=== PATIENT | female | born 1945 | race Caucasian/White ===

== ENCOUNTER → 2017-07-25 07:55 | Outpatient (CLI) | payer MEDICARE, SELFPAY ==
--- NOTE | 2017-07-25 | DI.MG.S_ITS ---
BILATERAL DIGITAL SCREENING MAMMOGRAM 3D/2D WITH CAD POST LUMPECTOMY: 07/25/2017 CLINICAL: Routine screening. Personal history of left breast cancer. Comparison is made to exams dated: 07/23/2016 mammogram, 07/06/2015 mammogram, and 05/17/2014 mammogram - [facility]. There are scattered fibroglandular elements in both breasts. Current study was also evaluated with a Computer Aided Detection (CAD) system. There are post operative findings in the left breast. No significant masses, calcifications, or other findings are seen in either breast. There has been no significant interval change. IMPRESSION: NEGATIVE There is no mammographic evidence of malignancy. A 1 year screening mammogram is recommended. This exam was interpreted at Station ID: [id number]. NOTE: For mammograms, a report in lay terms will be sent to the patient. Approximately 15% of breast malignancies will not be visualized mammographically. In the management of a palpable breast mass, a negative mammogram must not discourage biopsy of a clinically suspicious lesion. Electronically Signed By: Sofy [email or web address]/[email or web address]:07/25/2017 08:26:39 letter sent: Normal Exam ACR BI-RADS Category 1: Negative 3341F
== END ==
PROVIDERS: Family Provider Family Medicine; PCP Family Medicine; Visit Provider Physician Assistant
DX: Z12.31 Encounter for screening mammogram for malignant neoplasm of breast (principal); Z85.3 Personal history of malignant neoplasm of breast
CPT/HCPCS: 77063; 77067

== ENCOUNTER → 2017-10-15 15:44 | Outpatient (CLI) | payer MEDICARE, SELFPAY ==
[2017-10-15 16:17] LABS: Add Manual Diff / Slide Review NO; Basophils Percent Auto 0.9 % (0-2); Eosinophils Percent Auto 2.7 % (2-4); Hematocrit 44.3 % (36-46); Hemoglobin 15.2 g/dL (12.0-16.0); Lymphocytes Percent Auto 29.5 % (25-40); Mean Corpuscular HGB Conc 34.3 % (30-36); Mean Corpuscular Hemoglobin 30.8 PG (26-34); Mean Corpuscular Volume 89.8 fL (80-100); Monocytes Percent Auto 6.4 % (3-14); Neutrophils Absolute Auto 3200 /uL (3000-5900); Neutrophils Percent Auto 60.5 % (50-75); Platelet Count 209 X10^3/uL (150-400); Red Blood Cell Count 4.93 X10^6/uL (4.0-5.2); Red Cell Distribution Width 13.2 % (11.6-14.8); White Blood Cell Count 5.3 X10^3/uL (4.5-11.0)
[2017-10-15 16:46] LABS: Alanine Aminotransferase 31 IU/L (9-52); Albumin 4.7 g/dL (3.5-5.0); Albumin Globulin Ratio 1.6 (1.0-2.8); Alkaline Phosphatase 72 U/L (38-126); Aspartate Aminotransferase 27 IU/L (14-36); BUN Creatinine Ratio 23.3 (6-22); Bilirubin Total 1.4 mg/dL (0.2-1.3); Blood Urea Nitrogen 21 mg/dL (7-17); C-Reactive Protein Quant < 0.5 mg/dL (<1.0); Calcium 10.5 mg/dL (8.4-10.2); Carbon Dioxide 28 mmol/L (22-32); Chloride 102 mmol/L (98-107); Cholesterol 238 mg/dL (140-199); Estimated Glomerular Filt Rate > 60.0 mL/min (>60); Glucose 102 mg/dL (80-110); HDL Cholesterol 88 mg/dL (40-60); HEMOLYSIS < 15 (0-50); LDL Cholesterol Calculated 134 mg/dL (<100); Potassium 4.5 mmol/L (3.4-5.1); Sodium 140 mmol/L (137-145); Total Protein 7.7 g/dL (6.3-8.2); Triglycerides 82 mg/dL (35-150)
[2017-10-15 16:57] LABS: Erythrocyte Sedimentation Rate 2 MM/HR (0-20)
[2017-10-15 17:14] LABS: Thyroid Stimulating Hormone 0.14 uIU/mL (0.47-4.68)
[2017-10-15 17:34] LABS: Vitamin B12 603 pg/mL (239-931)
== END ==
PROVIDERS: Family Provider Family Medicine; PCP Family Medicine; Visit Provider Internal Medicine
DX: R51 Headache (principal)
CPT/HCPCS: 36415; 80053; 80061; 82607; 84443; 85025; 85651; 86140

== ENCOUNTER 2017-10-25 09:57 | Emergency (ER) | payer MEDICARE, SELFPAY ==
--- NOTE | 2017-10-25 09:59 | ED.GENADULT ---
HPI - General Adult General Chief complaint: Nausea/Vomiting/Diarrhea Stated complaint: DIARRHEA, FEEL LIKE I'M GOING TO FAINT Time Seen by Provider: 10/25/17 09:59 Source: patient Mode of arrival: ambulatory Limitations: no limitations History of Present Illness HPI narrative: Patient is an otherwise healthy 72-year-old female here for evaluation of not feeling well for the past month. Patient states that she has had diarrhea for the past 2 weeks. She has also had nausea which she describes as a generalized abdominal uneasiness. She has also had a right-sided headache which she saw her primary care doctor for last week and had this ?checked out? she states she had blood work done at that time. Apparently her TSH was low. She is not currently on any thyroid replacement medications. She was recently in [place] on a boat but states that her symptoms started prior to this trip. She has an appoint with her primary doctor next week. Denies any specific abdominal pain. No chest pain. No shortness of breath. Has had a 5 lb weight loss recently. Has had fatigue. Related Data Home Medications Medication Instructions Recorded Confirmed multivitamin [Multiple Vitamins] 1 tab PO QDAY #0 06/24/17 10/25/17 omega 4-iyu-kef-fish oil [Fish Oil] 1,000 mg PO QDAY #0 06/24/17 10/25/17 progesterone E4M 1 tab PO .hs 10/15/17 10/25/17 cholecalciferol (vitamin D3) 1,000 unit PO DAILY 10/25/17 10/25/17 [Vitamin D3] Previous Rx's Medication Instructions Recorded bupropion HCl 75 mg tablet 75 mg PO BID #60 tab 07/23/17 ondansetron 4 mg PO BID-TID PRN #10 tab 10/25/17 Allergies Allergy/AdvReac Type Severity Reaction Status Date / Time No Known Drug Allergies Allergy Verified 10/25/17 10:32 Review of Systems Constitutional Reports fatigue, Denies fever(s), Reports headache(s), Reports lethargy and Reports malaise ENT Ears, Nose, Mouth, and Throat: Denies vertigo, Denies dizziness, Reports headache(s), Reports disequilibrium, Denies sore throat and Denies throat swelling Cardiovascular Denies chest pain and Denies dyspnea Respiratory Denies cough and Denies dyspnea Gastrointestinal Gastrointestinal: Denies abdominal pain, Reports diarrhea, Reports nausea and Denies vomiting Genitourinary Reports dysuria, Denies urinary incontinence, Denies urinary hesitancy, Denies urinary urgency and Denies vaginal discharge Musculoskeletal Denies myalgias and Denies arthralgias Integumentary/Breasts Denies lesions and Denies rash Neurologic Denies confusion, Denies vertigo, Denies dizziness, Reports headache(s) and Reports disequilibrium Psychiatric Denies confusion Endocrine Reports fatigue Hematologic/Lymphatic Denies easy bleeding and Denies easy bruising Allergic/Immunologic Denies throat swelling [facility] Medical History Depression (Chronic) Measles (Chronic) Chicken pox (Resolved 1953) Surgical History Anesthesia (Resolved) Status post cholecystectomy (Resolved 1990) Status post colonoscopy (Resolved 2014) Family History Father Cancer Lung cancer Smoker Mother Diabetes mellitus Heart disease Brother No problems noted. Grandmother No problems noted. Sister No problems noted. Sister No problems noted. Social History Smoking Status: Never smoker Exam Initial Vital Signs Initial Vital Signs: Vital Signs Temperature 98.7 F 10/25/17 10:07 Pulse Rate 64 10/25/17 10:07 Respiratory Rate 14 10/25/17 10:07 Blood Pressure 156/91 H 10/25/17 10:07 Pulse Oximetry 100 10/25/17 10:07 Const General: cooperative, comfortable, well developed, well groomed and No acute distress Orientation: alert, awake and oriented x3 Resp Effort & Inspection: normal respiratory effort Auscultation: clear to auscultation bilaterally Cardio Rate: regular rate Rhythm: regular rhythm Heart Sounds: murmur Pulses: radial pulses present GI Inspection: non-distended Palpation: soft, No firm and No tender Back/Spine/Pelvis Back: No CVA tenderness Skin Lesions: no lesions Rashes: no rashes Neuro General: alert, awake and oriented x3 Cognition: normal cognition Speech: speech normal Gait: normal gait Motor: muscle tone normal throughout Sensory Exam: no sensory deficits noted Extrem General: normal to inspection and capillary refill normal Psych Appearance: grossly normal and well kempt Affect: other (Flat affect) Attitude: cooperative Thought Process: normal Course Orders Ordered: ED Orders 10/25/17 10:14 Complete Blood Count AUTO DIFF Stat Comprehensive Metabolic Panel Stat Lipase Stat Thyroid Stimulating Hormone Stat Triiodothyronine T3 Free Stat 10/25/17 10:19 EKG-12 Lead Stat Discontinued Medications Sodium Chloride (Normal Saline 0.9%) 1,000 mls @ 1,000 mls/hr IV BOLUS ONE Stop: 10/25/17 10:59 Last Infusion: 10/25/17 10:59 Dose: 0 mls/hr Admin: 10/25/17 10:17 Dose: 1,000 mls/hr Ondansetron HCl (Zofran) 4 mg IV NOW ONE Stop: 10/25/17 10:42 Last Admin: 10/25/17 10:57 Dose: 4 mg Vital Signs - 8 hr 10/25/17 10:07 10/25/17 10:35 10/25/17 11:45 Temperature 98.7 F Pulse Rate 64 60 46 L Respiratory Rate 14 14 Blood Pressure 156/91 H Blood Pressure [Left Arm] 137/69 H 129/59 H Pulse Oximetry 100 100 99 10/25/17 12:37 Temperature Pulse Rate 50 L Respiratory Rate 16 Blood Pressure Blood Pressure [Left Arm] 130/60 H Pulse Oximetry 96 Medical Decision Making MDM Narrative Medical decision making narrative: Patient's labs here in the emergency department were unremarkable. Her thyroid studies today were also unremarkable. Had a long discussion with her and her at bedside regarding this. She has a follow-up with her primary doctor next Friday. She reported an improvement of her abdominal symptoms after the Zofran. Urine is unremarkable. No indication for antibiotics. No indication for CT scans. Discussed with the patient that I did not have a specific etiology for her symptoms today however no emergent condition was found. She was given return precautions. She expressed understanding and agreement with plan. Lab Data Result diagrams: 10/25/17 10:14 10/25/17 10:14 Lab Results 10/25/17 10/25/17 10/25/17 Range/Units 10:14 10:14 10:14 WBC 3.4 L (4.5-11.0) X10^3/uL RBC 4.90 (4.0-5.2) X10^6/uL Hgb 15.1 (12.0-16.0) g/dL Hct 43.3 (36-46) % MCV 88.3 (80-100) fL MCH 30.8 (26-34) PG MCHC 34.8 (30-36) % RDW 13.1 (11.6-14.8) % Plt Count 213 (150-400) X10^3/uL Neut % (Auto) 50.0 (50-75) % Lymph % (Auto) 36.4 (25-40) % [place] % (Auto) 7.0 (3-14) % Eos % (Auto) 5.5 H (2-4) % Baso % (Auto) 1.1 (0-2) % Neut # (Auto) 1700 L (2586-0299) /uL Sodium 141 (137-145) mmol/L Potassium 4.0 (3.4-5.1) mmol/L Chloride 108 H (98-107) mmol/L Carbon Dioxide 22 (22-32) mmol/L BUN 16 (7-17) mg/dL Creatinine 0.90 (0.52-1.04) mg/dL Estimated GFR > 60.0 (>60) mL/min BUN/Creatinine Ratio 17.8 (6-22) Glucose 101 (80-110) mg/dL Calcium 10.1 (8.4-10.2) mg/dL Total Bilirubin 1.3 (0.2-1.3) mg/dL AST 27 (14-36) IU/L ALT 25 (9-52) IU/L Alkaline Phosphatase 78 (38-126) U/L Total Protein 7.7 (6.3-8.2) g/dL Albumin 4.5 (3.5-5.0) g/dL Globulin 3.2 (1.7-4.1) g/dL Albumin/Globulin Ratio 1.4 (1.0-2.8) Lipase 115 (23-300) U/L TSH 1.08 D (0.47-4.68) uIU/mL Free T3 3.39 (2.77-5.27) pg/mL ECG Data Attestation: I personally reviewed and interpreted this ECG as follows: Prior ECG tracings: not available for review Interpretation: Sinus bradycardia First degree AV block As needed oval 2-3 milliseconds Normal axis Normal QTC No ST T wave changes Discharge Plan Departure Patient Disposition: Home Clinical Impression: Malaise, Nausea Instructions: DI for Fatigue Activity Restrictions/Additional Instructions: Take the medication like we discussed. Keep her appointment that you have with your primary doctor on Friday of next week. Call your primary care doctor on Friday to see if they want to order stool studies. Recommend that you try to keep your fluid intake up. Return to the emergency department for any new or worsening symptoms Prescriptions: New ondansetron 4 mg tablet,disintegrating 4 mg PO BID-TID PRN (Reason: nausea and vomiting) Qty: 10 RF: 0 No Action multivitamin [Multiple Vitamins] 1 EACH tablet 1 tab PO QDAY Qty: 0 RF: 0 omega 9-fuc-lcu-fish oil [Fish Oil] 1,000 MG capsule 1,000 mg PO QDAY Qty: 0 RF: 0 bupropion HCl 75 mg tablet 75 mg PO BID Qty: 60 RF: 4 progesterone E4M 1 tab PO .hs RF: 0 cholecalciferol (vitamin D3) [Vitamin D3] 1,000 unit Capsule 1,000 unit PO DAILY RF: 0
[2017-10-25 10:07] VITALS: BP 156/91; PULSE 64; RESP 14; TEMP 37.1; O2SAT 100
[2017-10-25] MEDS: SODIUM CHLORIDE 0.9% 1,000 ML 1000 ML IV (10:17)
[2017-10-25 10:32] LABS: Add Manual Diff / Slide Review NO; Basophils Percent Auto 1.1 % (0-2); Eosinophils Percent Auto 5.5 % (2-4); Hematocrit 43.3 % (36-46); Hemoglobin 15.1 g/dL (12.0-16.0); Lymphocytes Percent Auto 36.4 % (25-40); Mean Corpuscular HGB Conc 34.8 % (30-36); Mean Corpuscular Hemoglobin 30.8 PG (26-34); Mean Corpuscular Volume 88.3 fL (80-100); Neutrophils Absolute Auto 1700 /uL (3000-5900); Platelet Count 213 X10^3/uL (150-400); Red Cell Distribution Width 13.1 % (11.6-14.8); White Blood Cell Count 3.4 X10^3/uL (4.5-11.0)
[2017-10-25 10:35] VITALS: BP 137/69; PULSE 60; RESP 14; O2SAT 100
[2017-10-25 10:37] LABS: Alanine Aminotransferase 25 IU/L (9-52); Albumin 4.5 g/dL (3.5-5.0); Albumin Globulin Ratio 1.4 (1.0-2.8); Alkaline Phosphatase 78 U/L (38-126); Aspartate Aminotransferase 27 IU/L (14-36); BUN Creatinine Ratio 17.8 (6-22); Bilirubin Total 1.3 mg/dL (0.2-1.3); Blood Urea Nitrogen 16 mg/dL (7-17); Calcium 10.1 mg/dL (8.4-10.2); Carbon Dioxide 22 mmol/L (22-32); Chloride 108 mmol/L (98-107); Estimated Glomerular Filt Rate > 60.0 mL/min (>60); Globulin 3.2 g/dL (1.7-4.1); Glucose 101 mg/dL (80-110); HEMOLYSIS < 15 (0-50); Lipase 115 U/L (23-300); Sodium 141 mmol/L (137-145); Total Protein 7.7 g/dL (6.3-8.2)
[2017-10-25] MEDS: ONDANSETRON 4 MG/2 ML INJ IV (10:57)
[2017-10-25 11:01] LABS: Free T3, Triiodothyronine Free 3.39 pg/mL (2.77-5.27)
[2017-10-25 11:15] LABS: Thyroid Stimulating Hormone 1.08 uIU/mL (0.47-4.68)
[2017-10-25 11:45] VITALS: BP 129/59; PULSE 46; O2SAT 99
[2017-10-25 12:37] VITALS: BP 130/60; PULSE 50; RESP 16; O2SAT 96
[2017-10-25 13:10] VITALS: BP 130/56; PULSE 58; O2SAT 96
== END 2017-10-25 13:14 | disposition home or self-care (01) ==
PROVIDERS: Emergency Provider Emergency Medicine; PCP Family Medicine
DX: R53.81 Other malaise (principal); R11.0 Nausea
CPT/HCPCS: 36591; 80053; 81003; 83690; 84443; 84481; 85025; 93005; 93010; 96361; 96374; 99283; 99284; J2405

== ENCOUNTER → 2017-11-07 13:34 | Outpatient (CLI) | payer MEDICARE, SELFPAY ==
[2017-11-07 15:09] LABS: Free T3, Triiodothyronine Free 3.78 pg/mL (2.77-5.27); Free T4, Direct Thyroxine 1.37 ng/dL (0.78-2.19)
[2017-11-07 15:22] LABS: Thyroid Stimulating Hormone 0.84 uIU/mL (0.47-4.68)
== END ==
PROVIDERS: PCP Family Medicine; Visit Provider Family Medicine
DX: R79.89 Other specified abnormal findings of blood chemistry (principal)
CPT/HCPCS: 36415; 84439; 84443; 84481

== ENCOUNTER → 2017-11-12 14:17 | Outpatient (CLI) | payer MEDICARE, SELFPAY ==
[2017-11-12 15:24] LABS: Add Manual Diff / Slide Review NO; Eosinophils Percent Auto 1.7 % (2-4); Hematocrit 42.9 % (36-46); Hemoglobin 14.9 g/dL (12.0-16.0); Lymphocytes Percent Auto 26.6 % (25-40); Mean Corpuscular HGB Conc 34.8 % (30-36); Mean Corpuscular Hemoglobin 30.8 PG (26-34); Mean Corpuscular Volume 88.4 fL (80-100); Monocytes Percent Auto 6.9 % (3-14); Neutrophils Absolute Auto 3000 /uL (3000-5900); Neutrophils Percent Auto 63.8 % (50-75); Platelet Count 230 X10^3/uL (150-400); Red Blood Cell Count 4.85 X10^6/uL (4.0-5.2); White Blood Cell Count 4.7 X10^3/uL (4.5-11.0)
[2017-11-12 15:52] LABS: Alanine Aminotransferase 25 IU/L (9-52); Albumin 4.5 g/dL (3.5-5.0); Albumin Globulin Ratio 1.5 (1.0-2.8); Alkaline Phosphatase 76 U/L (38-126); Aspartate Aminotransferase 32 IU/L (14-36); Bilirubin Total 1.5 mg/dL (0.2-1.3); Blood Urea Nitrogen 16 mg/dL (7-17); Calcium 10.3 mg/dL (8.4-10.2); Carbon Dioxide 27 mmol/L (22-32); Chloride 105 mmol/L (98-107); Estimated Glomerular Filt Rate > 60.0 mL/min (>60); Globulin 3.1 g/dL (1.7-4.1); Glucose 97 mg/dL (80-110); HEMOLYSIS 16 (0-50); Potassium 4.2 mmol/L (3.4-5.1); Sodium 142 mmol/L (137-145); Total Protein 7.6 g/dL (6.3-8.2)
== END ==
PROVIDERS: PCP Family Medicine; Visit Provider Internal Medicine
DX: R19.7 Diarrhea, unspecified (principal)
CPT/HCPCS: 36415; 80053; 85025

== ENCOUNTER → 2017-11-13 06:53 | Outpatient (CLI) | payer MEDICARE, SELFPAY ==
--- NOTE | 2017-11-13 06:54 | DI.MRI.S_ITS ---
PROCEDURE: MR HEAD/BRAIN WO CON INDICATIONS: 72-year-old woman with headache, memory impairment. TECHNIQUE: Non-contrast axial T1 spin echo, axial T2 fast spin echo, sagittal and axial FLAIR, coronal T2 fast spin echo, axial gradient echo, axial diffusion and ADC through the brain. COMPARISON: None. FINDINGS: Image quality: Excellent. CSF spaces: Ventricles appear symmetric in size and shape. Basal cisterns are patent. No extra-axial fluid collections. Brain: No intracranial bleeds or mass effects. There is mild cerebral volume loss for age. There are mild periventricular and deep white matter chronic small vessel ischemic changes. Brainstem appears normal. Diffusion-weighted images show no acute ischemic insults. No chronic ischemic insults. Normal intravascular flow voids are present. Skull and face: Calvarial bone marrow is normal in signal. Orbits are normal. Sinuses: Sinuses and mastoids are clear. IMPRESSION: 1. No acute intracranial abnormalities. 2. Mild cerebral volume loss and chronic microvascular ischemic changes. Dictated by: Josseline Sherman M.D. on 11/13/2017 at 9:38 Approved by: Josseline Sherman M.D. on 11/13/2017 at 9:40
== END ==
PROVIDERS: PCP Family Medicine; Visit Provider Family Medicine
DX: R51 Headache (principal); R41.3 Other amnesia
CPT/HCPCS: 70551

== ENCOUNTER → 2018-02-06 15:49 | Outpatient (CLI) | payer MEDICARE, SELFPAY ==
[2018-02-06 16:03] LABS: Bacteria Urine None Seen; RBC Urine None Seen (0-5/HPF)
[2018-02-06 16:13] LABS: Appearance Urine UA CLEAR; Bilirubin Urine UA NEGATIVE (NEGATIVE); Color Urine UA YELLOW; Glucose Urine UA NEGATIVE (Normal); Ketones Urine UA NEGATIVE (NEGATIVE); Leukocyte Esterase Urine UA 2+ (NEGATIVE); Nitrite Urine UA NEGATIVE (Negative); Occult Blood Urine UA TRACE-INTACT (Negative); Protein Urine UA NEGATIVE (Negative); Specific Gravity Urine UA <=1.005 (1.000-1.035); Urobilinogen Urine UA 0.2 E.U./dL (0.2); pH Urine UA 5.5 (4.5-8.0)
[2018-02-06 16:21] LABS: WBC Urine 1-5/HPF (0-5/HPF)
[2018-02-06 16:22] LABS: Culture Indicated Urine Specimen Cultured
[2018-02-06 17:42] LABS: Urine N gonorrhoeae NOT DETECTED
[2018-02-06 17:49] LABS: Urine Chlamydia NOT DETECTED
== END ==
PROVIDERS: PCP Family Medicine; Visit Provider Family Medicine
DX: N89.8 Other specified noninflammatory disorders of vagina (principal); R30.0 Dysuria
CPT/HCPCS: 81001; 87086; 87491; 87591

== ENCOUNTER → 2018-07-29 09:00 | Outpatient (CLI) | payer MEDICARE, SELFPAY ==
--- NOTE | 2018-07-29 | DI.MG.S_ITS ---
BILATERAL DIGITAL SCREENING MAMMOGRAM 3D/2D WITH CAD POST LUMPECTOMY: 07/29/2018 CLINICAL: Routine screening. Personal history of left breast cancer. Post left lumpectomy. Comparison is made to exams dated: 07/25/2017 mammogram, 07/23/2016 mammogram, and 07/06/2015 mammogram - [facility]. There are scattered fibroglandular elements in both breasts. Current study was also evaluated with a Computer Aided Detection (CAD) system. There are benign post operative findings in the left breast. There also are benign calcifications in both breasts. No significant masses, calcifications, or other findings are seen in either breast. There has been no significant interval change. IMPRESSION: There is no mammographic evidence of malignancy. A 1 year screening mammogram is recommended. This exam was interpreted at Station ID: [id number]. NOTE: For mammograms, a report in lay terms will be sent to the patient. Approximately 15% of breast malignancies will not be visualized mammographically. In the management of a palpable breast mass, a negative mammogram must not discourage biopsy of a clinically suspicious lesion. Electronically Signed By: Pablo [email or web address]:07/29/2018 09:59:39 letter sent: Normal Exam ACR BI-RADS Category 2: Benign Finding(s) 3342F
== END ==
PROVIDERS: PCP Family Medicine; Visit Provider Family Medicine
DX: Z12.31 Encounter for screening mammogram for malignant neoplasm of breast (principal); Z85.3 Personal history of malignant neoplasm of breast
CPT/HCPCS: 77063; 77067

== ENCOUNTER → 2018-11-04 13:06 | Outpatient (CLI) | payer MEDICARE, SELFPAY ==
[2018-11-04 13:24] LABS: Add Manual Diff / Slide Review NO; Basophils Absolute Auto 0 /uL (0-100); Eosinophils Absolute Auto 100 /uL (0-450); Eosinophils Percent Auto 3.2 % (2-4); Hematocrit 41.7 % (36-46); Hemoglobin 14.4 g/dL (12.0-16.0); Lymphocytes Absolute Auto 1300 /uL (1100-4500); Lymphocytes Percent Auto 27.8 % (25-40); Mean Corpuscular HGB Conc 34.7 % (30-36); Mean Corpuscular Volume 89.3 fL (80-100); Monocytes Absolute Auto 300 /uL (0-900); Monocytes Percent Auto 6.9 % (3-14); Neutrophils Absolute Auto 2800 /uL (1500-7000); Neutrophils Percent Auto 61.1 % (50-75); Platelet Count 217 X10^3/uL (150-400); Red Blood Cell Count 4.66 X10^6/uL (4.0-5.2); Red Cell Distribution Width 12.9 % (11.6-14.8); White Blood Cell Count 4.5 X10^3/uL (4.5-11.0)
[2018-11-04 13:51] LABS: Alanine Aminotransferase 20 IU/L (9-52); Albumin 4.2 g/dL (3.5-5.0); Albumin Globulin Ratio 1.4 (1.0-2.8); Alkaline Phosphatase 81 U/L (38-126); Aspartate Aminotransferase 30 IU/L (14-36); Bilirubin Total 1.2 mg/dL (0.2-1.3); Blood Urea Nitrogen 16 mg/dL (7-17); Calcium 10.1 mg/dL (8.4-10.2); Carbon Dioxide 24 mmol/L (22-32); Chloride 104 mmol/L (98-107); Estimated Glomerular Filt Rate > 60.0 mL/min (>60); Glucose 142 mg/dL (80-110); HEMOLYSIS < 15 (0-50); Sodium 139 mmol/L (137-145); Total Protein 7.2 g/dL (6.3-8.2)
[2018-11-04 14:09] LABS: Free T3, Triiodothyronine Free 3.91 pg/mL (2.77-5.27)
[2018-11-04 15:04] LABS: TSH w/ Reflex to FT4 0.97 uIU/mL (0.47-4.68)
== END ==
PROVIDERS: PCP Family Medicine; Visit Provider Family Medicine
DX: R23.2 Flushing (principal)
CPT/HCPCS: 36415; 80053; 84443; 84481; 85025

== ENCOUNTER → 2019-03-01 10:51 | Outpatient (CLI) | payer MEDICARE, SELFPAY ==
--- NOTE | 2019-03-01 10:57 | DI.RAD.S_ITS ---
PROCEDURE: XR HIP W PEL IF DONE LT 2V INDICATIONS: left hip pain TECHNIQUE: AP pelvis with lateral view(s) of the left hip(s). COMPARISON: [facility] [place], [place], XR PELVIS WITH LATERAL HIP LEFT, 08/07/2018, 14:13. FINDINGS: Bones: No fractures or dislocations. Pelvic ring appears intact. No suspicious bony lesions. Mild bilateral degenerative narrowing of the hips bilaterally. Soft tissues: The visualized bowel gas pattern is normal. No suspicious soft tissue calcifications. IMPRESSION: Mild osteoarthritic bilateral hip degenerative change. Dictated by: Regina Khan M.D. on 03/01/2019 at 14:30 Approved by: Regina Khan M.D. on 03/01/2019 at 14:30
--- NOTE | 2019-03-01 10:57 | DI.RAD.S_ITS ---
PROCEDURE: XR KNEE RT 3V INDICATIONS: right knee pain TECHNIQUE: 3 views of the knee were acquired. COMPARISON: None. FINDINGS: Bones: No fractures or dislocations. No suspicious bony lesions. Mild medial, lateral and patellofemoral compartment narrowing is present. Soft tissues: Moderate joint effusion. Dystrophic calcifications are noted the insertion of the lateral collateral ligament. IMPRESSION: Mild tricompartmental osteoarthritic narrowing. Dictated by: Regina Khan M.D. on 03/01/2019 at 14:29 Approved by: Regina Khan M.D. on 03/01/2019 at 14:30
== END ==
PROVIDERS: PCP Family Medicine; Visit Provider Family Medicine
DX: M25.552 Pain in left hip (principal); M25.561 Pain in right knee; M17.11 Unilateral primary osteoarthritis, right knee
CPT/HCPCS: 73502; 73562

== ENCOUNTER 2019-06-11 12:07 | Emergency (ER) | payer MEDICARE, SELFPAY ==
[2019-06-11 12:23] VITALS: BP 178/81; PULSE 63; RESP 23; TEMP 36.7; O2SAT 100; BMI 23.6
[2019-06-11 12:36] LABS: Add Manual Diff / Slide Review NO; Basophils Absolute Auto 100 /uL (0-100); Basophils Percent Auto 1.3 % (0-2); Eosinophils Absolute Auto 200 /uL (0-450); Eosinophils Percent Auto 3.9 % (2-4); Hematocrit 44.3 % (36-46); Hemoglobin 14.9 g/dL (12.0-16.0); Lymphocytes Absolute Auto 1400 /uL (1100-4500); Mean Corpuscular HGB Conc 33.8 % (30-36); Mean Corpuscular Hemoglobin 30.3 PG (26-34); Mean Corpuscular Volume 89.8 fL (80-100); Monocytes Absolute Auto 400 /uL (0-900); Monocytes Percent Auto 7.6 % (3-14); Neutrophils Absolute Auto 2600 /uL (1500-7000); Neutrophils Percent Auto 56.2 % (50-75); Platelet Count 222 X10^3/uL (150-400); Red Blood Cell Count 4.93 X10^6/uL (4.0-5.2); Red Cell Distribution Width 12.9 % (11.6-14.8); White Blood Cell Count 4.6 X10^3/uL (4.5-11.0)
[2019-06-11 12:38] LABS: INR 1.1 (0.9-1.3); Prothrombin Time 12.7 SECONDS (10.1-12.7)
--- NOTE | 2019-06-11 12:41 | DI.RAD.S_ITS ---
PROCEDURE: XR CHEST 1V INDICATIONS: dizziness TECHNIQUE: One view of the chest was acquired. COMPARISON: None. FINDINGS: Surgical changes and devices: None. Lungs and pleura: Lungs are clear. No pleural effusions or pneumothorax. Mediastinum: Mediastinal contours appear normal. Heart size is normal. Bones and chest wall: No suspicious bony lesions. Overlying soft tissues appear unremarkable. IMPRESSION: No acute cardiopulmonary pathology. Dictated by: Ishan Chowdhury M.D. on 06/11/2019 at 13:03 Approved by: Ishan Chowdhury M.D. on 06/11/2019 at 13:03
--- NOTE | 2019-06-11 12:42 | DI.CT.S_ITS ---
PROCEDURE: CT HEAD/BRAIN WO CON INDICATIONS: dizziness, elevated BP, tingling TECHNIQUE: Noncontrast 4.5 mm thick angled axial sections acquired from the foramen magnum to the vertex, with coronal and sagittal reformats. For radiation dose reduction, the following was used: automated exposure control, adjustment of mA and/or kV according to patient size. COMPARISON: [facility], MR, MR HEAD/BRAIN WO CON, 11/13/2017, 7:13. FINDINGS: Image quality: Excellent. CSF spaces: Basal cisterns are patent. No extra-axial fluid collections. The ventricles are symmetric in size and shape. Brain: No intracranial bleeds or masses. There is cerebral volume loss for age, with resultant ventricular and sulcal prominence. There are periventricular and deep white matter chronic small vessel ischemic changes. There is intracranial internal carotid artery atherosclerosis. Skull and face: Calvarium and visualized facial bones appear intact, without suspicious lesions. Incidental note is made of hyperostosis frontalis. This is not considered to be pathologic in a woman of this age. Sinuses: Visualized sinuses and mastoids are clear. IMPRESSION: Unremarkable intracranial study for age, without acute abnormality identified. Note is made of age-appropriate brain parenchymal volume loss and chronic small vessel ischemic changes. Dictated by: Abdirizak Pittman M.D. on 06/11/2019 at 11:58 Approved by: Abdirizak Pittman M.D. on 06/11/2019 at 11:59
[2019-06-11 12:46] LABS: Alanine Aminotransferase 19 IU/L (<35); Albumin 4.5 g/dL (3.5-5.0); Albumin Globulin Ratio 1.4 (1.0-2.8); Alkaline Phosphatase 84 U/L (38-126); Aspartate Aminotransferase 36 IU/L (14-36); BUN Creatinine Ratio 24.1 (6-22); Bilirubin Total 1.3 mg/dL (0.2-1.3); Blood Urea Nitrogen 21 mg/dL (7-17); Calcium 10.5 mg/dL (8.4-10.2); Carbon Dioxide 27 mmol/L (22-32); Chloride 105 mmol/L (98-107); Estimated Glomerular Filt Rate > 60.0 mL/min (>60); Globulin 3.3 g/dL (1.7-4.1); Glucose 111 mg/dL (80-110); Potassium 4.2 mmol/L (3.4-5.1); Sodium 140 mmol/L (137-145); Total Protein 7.8 g/dL (6.3-8.2)
[2019-06-11 13:00] VITALS: BP 149/67; PULSE 68; RESP 18; O2SAT 98
[2019-06-11 13:02] LABS: Creatine Kinase 67 U/L (30-135)
[2019-06-11 13:11] LABS: HEMOLYSIS 18 (0-50)
--- NOTE | 2019-06-11 13:42 | ED_ITS ---
HPI - Dizziness <LAURO Herr - Last Filed: 06/11/19 21:34> General Chief Complaint: Dizziness Stated Complaint: Dizziness body tingling underarm tenderness Time Seen by Provider: 06/11/19 12:16 Source: patient Mode of arrival: Ambulatory Limitations: no limitations History of Present Illness HPI Narrative: This is a 74-year-old female, nonsmoker, who presents to ED with sudden onset of dizziness this morning when she was sitting on a chair and talking on the phone and reports her whole body felt tingling but states she is not currently experiencing these. Patient describes as lightheadedness. Patient also reports bilateral axilla lymph node tenderness and mild soreness under her tongue for last 2 days. Patient denies fever, chills, nausea or vomiting. Patient denies short of breath, chest pain, nausea or vomiting, or cold sweats. Patient denies speech difficulty, headache, vision changes, weakness to extremities. Patient states she is rather healthy and walk and exercise regularly. She drinks beer occasionally but does not use recreational drugs. She has history of depression and takes 1 prescriptive medication for this. Related Data Home Medications Medication Instructions Recorded Confirmed multivitamin [Multiple Vitamins] 1 tab PO QDAY #0 06/24/17 03/01/19 omega 7-eoq-[id number]-fish oil [Fish Oil] 1,000 mg PO QDAY #0 06/24/17 03/01/19 cholecalciferol (vitamin D3) 1,000 unit PO DAILY 10/25/17 03/01/19 [Vitamin D3] Previous Rx's Medication Instructions Recorded bupropion HCl 150 mg 24 hr tablet, 150 mg PO QAM #90 tab 11/04/18 extended release Allergies Allergy/AdvReac Type Severity Reaction Status Date / Time No Known Drug Allergies Allergy Verified 06/11/19 12:23 Review of Systems <LAURO Herr - Last Filed: 06/11/19 21:34> Review of Systems Narrative: General: Denies fever, chills, fatigue, malaise, sweats. HEENT: Denies sinus pain, ear pain, sore throat, difficulty swallowing, (+) dizziness. Respiratory: Denies dyspnea, cough, wheezing, hemoptysis, sputum. Cardiovascular: Denies chest pain, palpitations, orthopnea, edema. Gastrointestinal: Denies nausea, vomiting, abdominal pain, diarrhea, constipation, melena. : Denies dysuria, frequency, incontinence, hematuria, urinary retention. Musculoskeletal: Denies weakness, joint pain or bony pain. Skin: Denies rash, skin lesions, or other. Neurologic: Denies weakness, headache, (+) whole body tingling, change in speech, confusion, seizures, incoordination. Psychiatric: No concerning psychosocial issues. 12-point review of systems is negative except for those stated above. Patient History <LAURO Herr - Last Filed: 06/11/19 21:34> Medical History Chicken pox (Resolved 1953) Depression (Chronic) Measles (Chronic) Surgical History Anesthesia (Resolved) Status post cholecystectomy (Resolved 1990) Status post colonoscopy (Resolved 2014) Family History Father Cancer Lung cancer Smoker Mother Diabetes mellitus Heart disease Brother No problems noted. Grandmother No problems noted. Sister No problems noted. Sister No problems noted. Social History marital status: household members: spouse pets and animals: Yes education level: college occupational status: other seatbelt use: always helmet use: Yes water heater temp set < 120 deg: Yes working smoke detector in home: Yes fire extinguisher in home: Yes carbon monox detector in home: No firearms in home: No Smoking Status: Never smoker alcohol intake: current (rare) during the past year weight has: remained stable well-balanced diet: daily or most days daily servings fruits/veg: other caffeine: Yes eating out: rarely or never Type(s) of exercise: regular exercise frequency: 3-4 times per week duration: 45-60 minutes/day Smoking Status: Never smoker alcohol intake frequency: holidays/special occasions only Substance Use Type: does not use Exam <LAURO Herr - Last Filed: 06/11/19 21:34> Narrative Exam Narrative: GEN: Alert, oriented x 3, well appearing and nourished, and in no acute distress. Head: Normal cephalic, atraumatic. No scalp or temporal tenderness, palpable mass or rash. EYES: Pupils are equal, round, and reactive to light and accommodation. Extraocular muscles are intact bilaterally. There is no subconjunctival hemorrhage, exudate and sclera non-icteric. ENT: Bilateral auditory canals and tympanic membranes clear. Hearing grossly intact. Nose without bleeding, purulent discharge, septal hematoma or deviation. Turbinate without erythema or swelling. Facial sinuses nontender to palpate. Mucous membrane moist, no mucosal lesion. Throat without erythema, tonsillar hypertrophy or exudate. Uvula in midline, airway patent. Neck: Trachea in midline. No JVD, non-tender without lymphadenopathy. No masses or thyroid megaly. Supple, non-tender and no meningeal signs. CARDIAC: Normal regular rate and rhythm without murmurs, gallops, or rubs. No chest wall tenderness. No peripheral edema, cyanosis or pallor. Capillary refill is less than 2 seconds. No carotid bruits. RESPIRATORY: Lungs are cleat to auscultate bilaterally. No cough, wheezes, rales, or rhonchi. No stridor, respiratory distress, increase work of breathing, or accessary muscle used. ABD: Abdomen soft, nontender and non-distended. No guarding or rebound tenderness to palpate. Bowel sounds are normal in all 4 quadrants. There is no palpable masses or organomegaly. EXT: Full painless ROM of all extremities with no loss of sensation, strength, effusion or edema. SKIN: Warm, dry, normal color for patient. No erythema, lesions or rash. BACK: Nontender without deformity or crepitance. No flank tenderness. NEUROLOGICAL: Alert and oriented to place, time and person. No facial droops, dysphasia. CN II-XII intact. Strength and sensation symmetric and intact throughout. Cerebellar testing normal. PSYCHIATRIC: Good judgement and reason, without hallucinations, abnormal affect or abnormal behaviors during the examination. Patient is not suicidal. Initial Vital Signs Initial Vital Signs: Vital Signs Temperature 98.1 F 06/11/19 12:23 Pulse Rate 63 06/11/19 12:23 Respiratory Rate 23 06/11/19 12:23 Blood Pressure 178/81 H 06/11/19 12:23 Pulse Oximetry 100 06/11/19 12:23 <Suly Salinas MD - Last Filed: 06/12/19 07:16> Initial Vital Signs Initial Vital Signs: Vital Signs Temperature 98.1 F 06/11/19 12:23 Pulse Rate 63 06/11/19 12:23 Respiratory Rate 23 06/11/19 12:23 Blood Pressure 178/81 H 06/11/19 12:23 Pulse Oximetry 100 06/11/19 12:23 Scores <LAURO Herr - Last Filed: 06/11/19 21:34> GCS Reynaldo coma scale eye opening: Spontaneous [place] coma scale verbal response: Orientated Reynaldo coma scale motor response: Obey commands [place] coma scale total score: 15 HEART Score Heart Score history: Slightly Suspicious Heart Score EKG: Normal Heart Score Age: > or = 65 years old Heart Score risk factors: No known risk factors Heart Score troponin: < or = to normal limit Heart Score Total: 2 NIH Stroke Scale Level of Conciousness: Alert, keenly responsive Ask month/age: Answers both questions correctly. Open/close eyes, close hand: Performs both tasks correctly Best gaze horizontal: Normal Visual penaloza: No visual loss Facial palsy: Normal symetrical movement Left arm drift: No drift for full 10 sec Right arm drift: No drift for full 10 sec Left leg drift: No drift for full 10 sec Right leg drift: No drift for full 10 sec Limb ataxia: Absent Sensory on face/arms/legs: Normal, no sensory loss Best language: No aphasia, normal Dysarthria: Normal Extinction or inattention: No abnormality Total NIH Stroke scale score: 0 Course <KELLY HerrP - Last Filed: 06/11/19 21:34> Orders Ordered: ED Orders 06/11/19 12:41 XR chest 1V Stat 06/11/19 12:42 CT head/brain wo con Stat Vital Signs Vital signs: Vital Signs - 8 hr 06/11/19 14:00 06/11/19 14:22 Pulse Rate 67 66 Respiratory Rate 17 16 Blood Pressure [Left Arm] 138/67 147/73 H Pulse Oximetry 97 98 <Suly Salinas MD - Last Filed: 06/12/19 07:16> Orders Ordered: ED Orders 06/11/19 12:41 XR chest 1V Stat 04/10/20 12:42 CT head/brain wo con Stat Vital Signs Vital signs: Vital Signs - 8 hr 06/11/19 14:00 06/11/19 14:22 Pulse Rate 67 66 Respiratory Rate 17 16 Blood Pressure [Left Arm] 138/67 147/73 H Pulse Oximetry 97 98 MDM - Dizziness <Jean-Pierre LAURO Doll - Last Filed: 06/11/19 21:34> Differential Diagnosis Differential diagnosis: Likely benign paroxysmal positional vertigo, transient cerebral ischemia and other (Dehydration, anemia, arrhythmia) Medical Records Attestation: I reviewed the patient's medical records. Lab Data Attestation: I reviewed the patient's lab results. Result diagrams: 06/11/19 12:20 06/11/19 12:20 Labs: Lab Results 06/11/19 06/11/19 06/11/19 Range/Units 12:20 12:20 12:20 WBC 4.6 (4.5-11.0) X10^3/uL RBC 4.93 (4.0-5.2) X10^6/uL Hgb 14.9 (12.0-16.0) g/dL Hct 44.3 (36-46) % MCV 89.8 (80-100) fL MCH 30.3 (26-34) PG MCHC 33.8 (30-36) % RDW 12.9 (11.6-14.8) % Plt Count 222 (150-400) X10^3/uL Neut % (Auto) 56.2 (50-75) % Lymph % (Auto) 31.0 (25-40) % Atkinson % (Auto) 7.6 (3-14) % Eos % (Auto) 3.9 (2-4) % Baso % (Auto) 1.3 (0-2) % Neut # (Auto) 2600 (3249-8994) /uL Lymph # (Auto) 1400 (5063-7266) /uL Atkinson # (Auto) 400 (0-900) /uL Eos # (Auto) 200 (0-450) /uL Baso # (Auto) 100 (0-100) /uL PT 12.7 (10.1-12.7) SECONDS INR 1.1 (0.9-1.3) Sodium 140 (137-145) mmol/L Potassium 4.2 (3.4-5.1) mmol/L Chloride 105 (98-107) mmol/L Carbon Dioxide 27 (22-32) mmol/L BUN 21 H (7-17) mg/dL Creatinine 0.87 (0.52-1.04) mg/dL Estimated GFR > 60.0 (>60) mL/min BUN/Creatinine Ratio 24.1 H (6-22) Glucose 111 H (80-110) mg/dL Calcium 10.5 H (8.4-10.2) mg/dL Total Bilirubin 1.3 (0.2-1.3) mg/dL AST 36 (14-36) IU/L ALT 19 (<35) IU/L Alkaline Phosphatase 84 (38-126) U/L Total Creatine Kinase (30-135) U/L CK-MB (CK-2) CK-MB (CK-2) Rel Index Troponin I Cancelled Total Protein 7.8 (6.3-8.2) g/dL Albumin 4.5 (3.5-5.0) g/dL Globulin 3.3 (1.7-4.1) g/dL Albumin/Globulin Ratio 1.4 (1.0-2.8) 04/10/20 Range/Units 12:20 WBC (4.5-11.0) X10^3/uL RBC (4.0-5.2) X10^6/uL Hgb (12.0-16.0) g/dL Hct (36-46) % MCV (80-100) fL MCH (26-34) PG MCHC (30-36) % RDW (11.6-14.8) % Plt Count (150-400) X10^3/uL Neut % (Auto) (50-75) % Lymph % (Auto) (25-40) % Atkinson % (Auto) (3-14) % Eos % (Auto) (2-4) % Baso % (Auto) (0-2) % Neut # (Auto) (7845-1777) /uL Lymph # (Auto) (0647-9613) /uL Atkinson # (Auto) (0-900) /uL Eos # (Auto) (0-450) /uL Baso # (Auto) (0-100) /uL PT (10.1-12.7) SECONDS INR (0.9-1.3) Sodium (137-145) mmol/L Potassium (3.4-5.1) mmol/L Chloride (98-107) mmol/L Carbon Dioxide (22-32) mmol/L BUN (7-17) mg/dL Creatinine (0.52-1.04) mg/dL Estimated GFR (>60) mL/min BUN/Creatinine Ratio (6-22) Glucose (80-110) mg/dL Calcium (8.4-10.2) mg/dL Total Bilirubin (0.2-1.3) mg/dL AST (14-36) IU/L ALT (<35) IU/L Alkaline Phosphatase (38-126) U/L Total Creatine Kinase 67 (30-135) U/L CK-MB (CK-2) TNP CK-MB (CK-2) Rel Index TNP Troponin I < 0.012 Total Protein (6.3-8.2) g/dL Albumin (3.5-5.0) g/dL Globulin (1.7-4.1) g/dL Albumin/Globulin Ratio (1.0-2.8) Imaging Data CT scan - head: Radiologist's Impression: [place] [id number] CT Scan Report Signed Patient: Carlie Braga#: [id number] : 7Acct:[id number] Age/Sex: 74 / FDate of Service: 06/11/19 Loc: ED Accession Number: [id number] Procedure: CT head/brain wo con Ordering Provider: Jean-Pierre Doll PROCEDURE: CT HEAD/BRAIN WO CON INDICATIONS: dizziness, elevated BP, tingling TECHNIQUE: Noncontrast 4.5 mm thick angled axial sections acquired from the foramen magnum to the vertex, with coronal and sagittal reformats. For radiation dose reduction, the following was used: automated exposure control, adjustment of mA and/or kV according to patient size. COMPARISON: [facility], , MR HEAD/BRAIN WO CON, 11/13/2017, 7:13. FINDINGS: Image quality: Excellent. CSF spaces: Basal cisterns are patent. No extra-axial fluid collections. The ventricles are symmetric in size and shape. Brain: No intracranial bleeds or masses. There is cerebral volume loss for age, with resultant ventricular and sulcal prominence. There are periventricular and deep white matter chronic small vessel ischemic changes. There is intracranial internal ca rotid artery atherosclerosis. Skull and face: Calvarium and visualized facial bones appear intact, without suspicious lesions. Incidental note is made of hyperostosis frontalis. This is not consi dered to be pathologic in a woman of this age. Sinuses: Visualized sinuses and mastoids are clear. IMPRESSION: Unremarkable intracranial study for age, without acute abnormality identified. Note is made of age-appropriate brain parenchymal volume loss and chronic small vessel ischemic changes. Dictated by: Abdirizak Pittman M.D. on 06/11/2019 at 11:58 Approved by: Abdirizak Pittman M.D. on 06/11/2019 at 11:59 Chest x-ray: Radiologist's Impression: [address] [id number] XRay Report Signed Patient: Carlie Braga#: [id number] : 7Acct:[id number] Age/Sex: 74 / FDate of Service: 06/11/19 Loc: ED Accession Number: [id number] Procedure: XR chest 1V Ordering Provider: Jean-Pierre Doll PROCEDURE: XR CHEST 1V INDICATIONS: dizziness TECHNIQUE: One view of the chest was acquired. COMPARISON: None. FINDINGS: Surgical changes and devices: None. Lungs and pleura: Lungs are clear. No pleural effusions or pneumothorax. Mediastinum: Mediastinal contours appear normal. Heart size is normal. Bones and chest wall: No suspicious bony lesions. Overlying soft tissues appear unremarkable. IMPRESSION: No acute cardiopulmonary pathology. Dictated by: Ishan Chowdhury M.D. on 06/11/2019 at 13:03 Approved by: Ishan Chowdhury M.D. on 06/11/2019 at 13:03 ECG Data Attestation: I personally reviewed and interpreted this ECG as follows: Prior ECG tracings: available for review Interpretation: SR rate at 62 with 1st degree AVB. Normal Reading. TN int 225, QRS duration 91, QT/QTC 394/[address] elevation or depression. No significant changes from previous EKG MDM Narrative Medical decision making narrative: This is a 74-year-old female who presents to ED with chief complain of sudden onset of dizziness which started when she was sitting on a chair while talking on the phone and tingling sensation in her whole body which resolved by the time she came to ED. patient also reports bilateral axilla lymph node tenderness and some soreness under her tongue for last 2 days. Patient is afebrile with normotensive and heart rate. EKG showed sinus rhythm with first-degree block which has not changed from previous EKG. Cardiac enzymes were negative. Head CT and chest x-ray were negative for acute findings. Neuro exam without focal deficit and NIH score was 0. CBC within normal limits. Chemistry test shows mildly elevated serum glucose of 111 and mildly elevated BUN of 21 otherwise unremarkable. Considered meclizine for patient's symptoms but When patient was reassessed, patient states continue to feel as her normal and declined medication. Patient advised to follow up with primary care physician for further evaluation and testing as needed. Return precautions including stroke symptoms were discussed with the patient and to call 911 and patient verbalized understanding and agreement with treatment plan. <Suly Salinas MD - Last Filed: 06/12/19 07:16> Lab Data Labs: Lab Results 06/11/19 06/11/19 06/11/19 Range/Units 12:20 12:20 12:20 WBC 4.6 (4.5-11.0) X10^3/uL RBC 4.93 (4.0-5.2) X10^6/uL Hgb 14.9 (12.0-16.0) g/dL Hct 44.3 (36-46) % MCV 89.8 (80-100) fL MCH 30.3 (26-34) PG MCHC 33.8 (30-36) % RDW 12.9 (11.6-14.8) % Plt Count 222 (150-400) X10^3/uL Neut % (Auto) 56.2 (50-75) % Lymph % (Auto) 31.0 (25-40) % Atkinson % (Auto) 7.6 (3-14) % Eos % (Auto) 3.9 (2-4) % Baso % (Auto) 1.3 (0-2) % Neut # (Auto) 2600 (2112-1116) /uL Lymph # (Auto) 1400 (1675-2221) /uL Atkinson # (Auto) 400 (0-900) /uL Eos # (Auto) 200 (0-450) /uL Baso # (Auto) 100 (0-100) /uL PT 12.7 (10.1-12.7) SECONDS INR 1.1 (0.9-1.3) Sodium 140 (137-145) mmol/L Potassium 4.2 (3.4-5.1) mmol/L Chloride 105 (98-107) mmol/L Carbon Dioxide 27 (22-32) mmol/L BUN 21 H (7-17) mg/dL Creatinine 0.87 (0.52-1.04) mg/dL Estimated GFR > 60.0 (>60) mL/min BUN/Creatinine Ratio 24.1 H (6-22) Glucose 111 H (80-110) mg/dL Calcium 10.5 H (8.4-10.2) mg/dL Total Bilirubin 1.3 (0.2-1.3) mg/dL AST 36 (14-36) IU/L ALT 19 (<35) IU/L Alkaline Phosphatase 84 (38-126) U/L Total Creatine Kinase (30-135) U/L CK-MB (CK-2) CK-MB (CK-2) Rel Index Troponin I Cancelled Total Protein 7.8 (6.3-8.2) g/dL Albumin 4.5 (3.5-5.0) g/dL Globulin 3.3 (1.7-4.1) g/dL Albumin/Globulin Ratio 1.4 (1.0-2.8) 04/10/20 Range/Units 12:20 WBC (4.5-11.0) X10^3/uL RBC (4.0-5.2) X10^6/uL Hgb (12.0-16.0) g/dL Hct (36-46) % MCV (80-100) fL MCH (26-34) PG MCHC (30-36) % RDW (11.6-14.8) % Plt Count (150-400) X10^3/uL Neut % (Auto) (50-75) % Lymph % (Auto) (25-40) % Atkinson % (Auto) (3-14) % Eos % (Auto) (2-4) % Baso % (Auto) (0-2) % Neut # (Auto) (6881-8370) /uL Lymph # (Auto) (0415-9308) /uL Atkinson # (Auto) (0-900) /uL Eos # (Auto) (0-450) /uL Baso # (Auto) (0-100) /uL PT (10.1-12.7) SECONDS INR (0.9-1.3) Sodium (137-145) mmol/L Potassium (3.4-5.1) mmol/L Chloride (98-107) mmol/L Carbon Dioxide (22-32) mmol/L BUN (7-17) mg/dL Creatinine (0.52-1.04) mg/dL Estimated GFR (>60) mL/min BUN/Creatinine Ratio (6-22) Glucose (80-110) mg/dL Calcium (8.4-10.2) mg/dL Total Bilirubin (0.2-1.3) mg/dL AST (14-36) IU/L ALT (<35) IU/L Alkaline Phosphatase (38-126) U/L Total Creatine Kinase 67 (30-135) U/L CK-MB (CK-2) TNP CK-MB (CK-2) Rel Index TNP Troponin I < 0.012 Total Protein (6.3-8.2) g/dL Albumin (3.5-5.0) g/dL Globulin (1.7-4.1) g/dL Albumin/Globulin Ratio (1.0-2.8) Discharge Plan Departure Patient Disposition: Home Clinical Impression: Light-headedness Discharge Date/Time: 06/11/19 14:41 Instructions: DI for Dizziness-Nonvertigo Activity Restrictions/Additional Instructions: You have been diagnosed with [lightheadedness and tingling in whole body which resolved. EKG was sinus rhythm with first-degree AV block without changes from previous EKG in 2018. CT scan of head and chest x-ray without acute findings, bleed. Cardiac enzymes were normal. No signs of anemia. Mild dehydration per chemistry test.]. What to do: *Take your medications as directed. No new medications to go home with. *Follow up with your primary care provider in 2-3 days, call for an appointment. Let them know you were seen in the ED and that we asked you to be seen in follow up. *Return to ED if you have any new, worsening, or concerning symptoms, such as [chest pain, breathing difficulty, unable to tolerate fluids, speech difficulty, weakness to 1 side of your body, vision change, headache, balance problem, or any acute concerns]. Prescriptions: No Action bupropion HCl 150 mg tablet extended release 24 hr 150 mg PO QAM Qty: 90 RF: 3 multivitamin [Multiple Vitamins] 1 EACH tablet 1 tab PO QDAY Qty: 0 RF: 0 omega 6-dpy-ugx-fish oil [Fish Oil] 1,000 MG capsule 1,000 mg PO QDAY Qty: 0 RF: 0 cholecalciferol (vitamin D3) [Vitamin D3] 1,000 unit Capsule 1,000 unit PO DAILY RF: 0 Referrals: Theresa Boyer MD [Primary Care Provider] -
[2019-06-11 14:00] VITALS: BP 138/67; PULSE 67; RESP 17; O2SAT 97
[2019-06-11 14:14] LABS: Troponin I < 0.012 ng/mL (0.01-0.034)
[2019-06-11 14:22] VITALS: BP 147/73; PULSE 66; RESP 16; O2SAT 98
== END 2019-06-11 14:41 | disposition home or self-care (01) ==
PROVIDERS: Emergency Provider Nurse Practitioner Family; PCP Family Medicine
DX: R42 Dizziness and giddiness (principal); I10 Essential (primary) hypertension; R79.89 Other specified abnormal findings of blood chemistry
CPT/HCPCS: 36415; 70450; 71045; 80053; 82550; 84484; 85025; 85610; 93005; 99284

== ENCOUNTER → 2019-10-29 15:01 | Outpatient (CLI) | payer MEDICARE, SELFPAY ==
[2019-10-30 15:09] LABS: COVID19 Sendout Not Detected (Not Detected)
== END ==
PROVIDERS: PCP Family Medicine; Visit Provider Physician Assistant
DX: R19.7 Diarrhea, unspecified (principal)
CPT/HCPCS: 87635

== ENCOUNTER → 2019-11-03 16:51 | Outpatient (CLI) | payer MEDICARE, SELFPAY ==
--- NOTE | 2019-11-03 17:15 | DI.MG.S_ITS ---
Patient Name: ROBERT LOZANO date: 1945 Sex: F Attending Physician: Merlin Indications: Date: 11/03/2019 16:58 At the request of: GERRY LEI Procedure: MM screening mammo BI BILATERAL DIGITAL SCREENING MAMMOGRAM 3D/2D WITH CAD POST LUMPECTOMY: 11/03/2019 CLINICAL: Routine screening. Breast cancer. Comparison is made to exams dated: 07/29/2018 mammogram, 07/25/2017 mammogram, and 07/23/2016 mammogram - [facility]. There are scattered fibroglandular elements in both breasts. Current study was also evaluated with a Computer Aided Detection (CAD) system. There are benign calcifications in both breasts. There also are benign post operative findings in the left breast. No significant masses, calcifications, or other findings are seen in either breast. There has been no significant interval change. IMPRESSION: BENIGN There is no mammographic evidence of malignancy. A 1 year screening mammogram is recommended. This exam was interpreted at Station ID: [id number]. NOTE: For mammograms, a report in lay terms will be sent to the patient. Approximately 15% of breast malignancies will not be visualized mammographically. In the management of a palpable breast mass, a negative mammogram must not discourage biopsy of a clinically suspicious lesion. Electronically Signed By: Pablo [email or web address]/[email or web address]:11/04/2019 07:42:40 letter sent: Normal Exam ACR BI-RADS Category 2: Benign Finding(s) 3342F Continued Report - Page 2 of 2 Patient Name: ROBERT LOZANO date: 1945 Sex: F Attending Physician: Merlin Indications: Date: 11/03/2019 16:58 At the request of: GERRY LEI Procedure: MM screening mammo BI
== END ==
PROVIDERS: PCP Family Medicine; Referring Provider Family Medicine; Visit Provider Family Medicine
DX: Z12.31 Encounter for screening mammogram for malignant neoplasm of breast (principal); Z85.3 Personal history of malignant neoplasm of breast
CPT/HCPCS: 77063; 77067

== ENCOUNTER → 2019-11-09 17:18 | Outpatient (CLI) | payer MEDICARE, SELFPAY | PROVIDERS: PCP Family Medicine; Visit Provider Nurse Practitioner | DX: R30.0 Dysuria (principal) | CPT/HCPCS: 87077; 87086; 87186 ==

== ENCOUNTER → 2019-11-16 09:49 | Outpatient (CLI) | payer MEDICARE, SELFPAY ==
[2019-11-19 03:28] LABS: Chlamydia trachomatis Negative (Negative); Mycoplasma genitalium Negative (Negative); Neisseria gonorrhoeae Negative (Negative)
== END ==
PROVIDERS: PCP Family Medicine; Visit Provider Family Medicine
DX: N89.8 Other specified noninflammatory disorders of vagina (principal); R82.90 Unspecified abnormal findings in urine
CPT/HCPCS: 87077; 87086; 87185; 87186; 87491; 87591

== ENCOUNTER → 2019-12-15 12:39 | Outpatient (CLI) | payer MEDICARE, SELFPAY | PROVIDERS: PCP Family Medicine; Visit Provider Family Medicine | DX: J02.9 Acute pharyngitis, unspecified (principal) | CPT/HCPCS: 87070 ==

== ENCOUNTER → 2020-04-25 10:57 | Outpatient (CLI) | payer MEDICARE, SELFPAY ==
--- NOTE | 2020-04-25 11:32 | DI.CT.S_ITS ---
PROCEDURE: CT HEAD/BRAIN WO CON INDICATIONS: worsening headache, palpable tender head mass right occipital TECHNIQUE: Noncontrast 4.5 mm thick angled axial sections acquired from the foramen magnum to the vertex, with coronal and sagittal reformats. For radiation dose reduction, the following was used: automated exposure control, adjustment of mA and/or kV according to patient size. COMPARISON: [facility], MR, MR HEAD/BRAIN WO CON, 11/13/2017, 7:13. [facility], CT, CT HEAD/BRAIN WO CON, 06/11/2019, 12:42. FINDINGS: Image quality: Excellent. CSF spaces: Basal cisterns are patent. No extra-axial fluid collections. The ventricles are symmetric in size and shape. Brain: No intracranial bleeds or masses. There is cerebral volume loss for age, with resultant ventricular and sulcal prominence. There are periventricular and deep white matter chronic small vessel ischemic changes. There is intracranial internal carotid artery atherosclerosis. Skull and face: Scrutiny is given to the right occipital region. No hand roller masses or bone lesions can be seen within this area. Calvarium and visualized facial bones appear intact, without suspicious lesions. Incidental note is made of hyperostosis frontalis. This is not considered to be pathologic in a woman of this age. Sinuses: Visualized sinuses and mastoids are clear. IMPRESSION: Unremarkable intracranial study, without an imaging explanation found for the patient's presenting history of headache. No abnormality seen within the right occipital region. Dictated by: Abdirizak Pittman M.D. on 04/25/2020 at 11:04 Approved by: Abdirizak Pittman M.D. on 04/25/2020 at 11:06
== END ==
PROVIDERS: PCP Family Medicine; Referring Provider Family Medicine; Visit Provider Family Medicine
DX: R51.9 Headache, unspecified (principal); R22.0 Localized swelling, mass and lump, head
CPT/HCPCS: 70450

== ENCOUNTER 2020-06-07 12:22 | Emergency (ER) | payer MEDICARE, SELFPAY ==
[2020-06-07 12:30] VITALS: BP 177/56; PULSE 63; RESP 14; TEMP 36.4; O2SAT 99; BMI 24.3
--- NOTE | 2020-06-07 14:52 | ED_ITS ---
HPI - Neuro Symptoms/Deficit General Chief Complaint: Neuro Symptoms/Deficit Stated Complaint: back of head hurts, no injury, memory issues Time Seen by Provider: 06/07/20 14:17 Source: patient Mode of arrival: Ambulatory Limitations: no limitations History of Present Illness HPI Narrative: 74-year-old woman presents with posterior occipital pain and concerns for memory dysfunction. The posterior occipital pain is been present for about 2 days is not associated with fever, neck stiffness, cough, your pain. She does note her right eye has been slightly more sensitive. She also is concerned about memory dysfunction. She has essentially spent the last year socially isolated due to COVID and as she is beginning to increase social activities she feels that she is not as sharp as she has been previously. She recently spoke to her sister on the phone who also expressed concerns about cognitive function. On Anticoagulants: No Related Data Home Medications Medication Instructions Recorded Confirmed multivitamin [Multiple Vitamins] 1 tab PO QDAY #0 06/24/17 04/14/20 omega 7-ojc-tww-fish oil [Fish Oil] 1,000 mg PO QDAY #0 06/24/17 04/14/20 cholecalciferol (vitamin D3) 1,000 unit PO DAILY 10/25/17 04/14/20 [Vitamin D3] Previous Rx's Medication Instructions Recorded bupropion HCl 150 mg 24 hr tablet, 150 mg PO BID #180 tab 11/23/19 extended release Estriol 1mg Vaginal Elicia See Rx Instructions .ROUTE 03/20/20 .COMPLEX #30 ea progesterone micronized 100 mg 100 mg PO QAM 30 Days #30 cap 03/20/20 capsule Allergies Allergy/AdvReac Type Severity Reaction Status Date / Time No Known Drug Allergies Allergy Verified 06/07/20 12:35 Review of Systems Review of Systems ROS Unobtainable: All systems reviewed & are unremarkable except as noted in HPI and below Hematologic/Lymphatic On Anticoagulants: No Patient History Medical History Chicken pox (1954) Depression Measles Surgical History Anesthesia Status post cholecystectomy (1990) Status post colonoscopy (2014) Family History Father Cancer Lung cancer Smoker Mother Diabetes mellitus Heart disease Brother No problems noted. Grandmother No problems noted. Sister No problems noted. Sister No problems noted. Social History marital status: household members: spouse pets and animals: Yes education level: college occupational status: other seatbelt use: always helmet use: Yes water heater temp set < 120 deg: Yes working smoke detector in home: Yes fire extinguisher in home: Yes carbon monox detector in home: No firearms in home: No Smoking Status: Never smoker alcohol intake: current (rare) during the past year weight has: remained stable well-balanced diet: daily or most days daily servings fruits/veg: other caffeine: Yes eating out: rarely or never Type(s) of exercise: regular exercise frequency: 3-4 times per week duration: 45-60 minutes/day Smoking Status: Never smoker alcohol intake frequency: holidays/special occasions only Substance Use Type: does not use Exam Narrative Exam Narrative: General: Healthy appearing, in no acute distress. Able to give a complete and coherent history. Well-nourished well-developed HEENT: Moist mucous membranes, normal sclera with reactive pupils, small swollen lymph node right occiput with no scalp lesions are your lesions appreciated on exam. Neck: , supple Respiratory: Lungs are clear to auscultation, no wheezing no rales no rhonchi. Full and symmetrical air movement Cardiac: Regular rate and rhythm no murmurs no bruits Abdomen: Soft, nontender, good bowel tones, no flank pain Skin: Warm and dry, no rashes Neurologic: Grossly neurologically intact with no obvious asymmetries or abnormalities. Fluent speech and appropriate cot interaction in the emergency department Extremities: No trauma, well perfused Psych: Cooperative, appropriate insight and affect Initial Vital Signs Initial Vital Signs: Vital Signs Temperature 97.5 F L 06/07/20 12:30 Pulse Rate 63 06/07/20 12:30 Respiratory Rate 14 06/07/20 12:30 Blood Pressure 177/56 H 06/07/20 12:30 Pulse Oximetry 99 06/07/20 12:30 Course Vital Signs Vital signs: Vital Signs - 8 hr 06/07/20 12:30 Temperature 97.5 F L Pulse Rate 63 Respiratory Rate 14 Blood Pressure 177/56 H Pulse Oximetry 99 MDM - Neuro Symptoms/Deficit Medical Records Attestation: I reviewed the patient's medical records. Lab Data Labs: Urine Dip Bedside Urine Glucose Negative Bedside Urine Bilirubin - Negative Bedside Urine Ketone - Negative Urine Specific [place] 1.015 Bedside Urine Occult Blood - Negative Bedside Urine pH 6.5 Bedside Urine Protein - Negative Bedside Urine Urobilinogen - Negative Bedside Urine Nitrite - Negative Bedside Urine Leukocytes - Negative Esterase [facility] Narrative Medical decision making narrative: 74-year-old woman with right-sided occipital pain and complaints with cognitive decline presents for further evaluation after recommendation from primary care office. She does have a small swollen occipital node that I believe is the source of the right neck pain. Reassurance given. Regarding the cognitive decline fact that she is asking the questions, concerned and seeking additional input is all very reassuring. We talked about some of the computer apps and games that can help test and challenge cognitive skills and suggested that she follow-up with her primary care physician to see if advanced neurocognitive testing might be appropriate. Discharge Plan Departure Patient Disposition: Home Clinical Impression: Cervical adenopathy, Memory dysfunction Instructions: Keep Your Memory Sharp, Enhancing Memory and Mental Function (Alternative Therapy) Activity Restrictions/Additional Instructions: Thank you for coming in today The soreness on the back of your neck I believe is due to a swollen lymph node. Typically lymph nodes in that area are swollen because of a small infection some more on your scalp. I did not see any obvious infection and I suspect that your immune system is working perfectly and this will resolve in the next couple of days. You expressed concern about cognitive decline. 2020 has been a challenging year for everybody and a number of people have noticed that a year of social isolation certainly causes some cognitive changes. With our conversation and the depth of your questions today you clearly do not have any dramatic signs of advancing dementia at this time. The recent head CT scan is reassuring for the absence of any physical abnormalities in your brain. I would encourage you to follow-up with Dr. Boyer regarding your memory concerns. There are much more in depth neuro cognitive testing options to truly get a better idea of memory dysfunction. In the meantime, doing all that you can to increase real human social interaction and looking up some of the online memory games and help in keeping memory sharp would certainly be appropriate. At this time, I do not see any evidence of overwhelming infection and I am not concerned about stroke. I wish you the best Prescriptions: No Action bupropion HCl 150 mg tablet extended release 24 hr 150 mg PO BID Qty: 180 RF: 3 multivitamin [Multiple Vitamins] 1 EACH tablet 1 tab PO QDAY Qty: 0 RF: 0 omega 1-qwc-xqj-fish oil [Fish Oil] 1,000 MG capsule 1,000 mg PO QDAY Qty: 0 RF: 0 progesterone micronized 100 mg capsule 100 mg PO QAM 30 Days Qty: 30 RF: 1 Estriol 1mg Vaginal Elicia See Rx Instructions .ROUTE .COMPLEX Qty: 30 RF: 2 cholecalciferol (vitamin D3) [Vitamin D3] 1,000 unit Capsule 1,000 unit PO DAILY RF: 0 Referrals: Theresa Boyer MD [Primary Care Provider] -
[2020-06-07 15:02] VITALS: BP 168/64; PULSE 77; RESP 16; O2SAT 98
== END 2020-06-07 15:02 | disposition home or self-care (01) ==
PROVIDERS: Emergency Provider Emergency Medicine; PCP Family Medicine
DX: R59.0 Localized enlarged lymph nodes (principal); R41.3 Other amnesia
CPT/HCPCS: 81003; 99284

== ENCOUNTER → 2020-07-26 08:55 | Outpatient (CLI) | payer MEDICARE, SELFPAY ==
--- NOTE | 2020-07-26 08:56 | DI.US.S_ITS ---
LIMITED ULTRASOUND OF LEFT BREAST: 07/26/2020 CLINICAL: Left retroareolar/nipple pain. Comparison is made to exams dated: 07/26/2020 mammogram, 11/03/2019 mammogram, 07/29/2018 mammogram, 07/25/2017 mammogram, 07/23/2016 mammogram, and 07/06/2015 mammogram - [facility]. Color flow and real-time ultrasound of the left breast retroareolar were performed. Estrella scale images of the real-time examination were reviewed. No significant abnormalities were seen sonographically in the left breast. Specifically, no finding to explain the patient's pain. IMPRESSION: NEGATIVE There is no sonographic correlate to the patient's pain and no evidence of malignancy. Return to annual mammogram screening schedule is recommended. Findings and recommendations were conveyed to the patient at time of exam. This exam was interpreted at Station ID: [id number]. Electronically Signed By: Alana mascorro/:07/26/2020 10:49:52 letter sent: Normal Exam Ultrasound BI-RADS: 1 Negative
--- NOTE | 2020-07-26 08:56 | DI.MG.S_ITS ---
BILATERAL DIGITAL DIAGNOSTIC MAMMOGRAM 3D/2D: 07/26/2020 CLINICAL: Left breast pain. Comparison is made to exams dated: 11/03/2019 mammogram, 07/29/2018 mammogram, and 07/25/2017 mammogram - [facility]. The tissue of both breasts is predominantly fatty. There is stable architectural distortion in the left breast central to the nipple anterior depth. This is seen in additional views. This correlates to the area of reported pain. No other new findings to explain nipple pain. No other significant masses, calcifications, or other findings are seen in either breast. IMPRESSION: INCOMPLETE: NEEDS ADDITIONAL IMAGING EVALUATION The architectural distortion in the left breast is consistent with a previous surgery and is stable. An ultrasound is recommended for full evaluation of this area given new symptoms. There is no other abnormality seen in the left breast to correspond with the pain in the sub-areolar depth. Ultrasound was performed immediately following this exam. This exam was interpreted at Station ID: [id number]. NOTE: For mammograms, a report in lay terms will be sent to the patient. Approximately 15% of breast malignancies will not be visualized mammographically. In the management of a palpable breast mass, a negative mammogram must not discourage biopsy of a clinically suspicious lesion. Electronically Signed By: Alana mascorro/:07/26/2020 10:48:54 ACR BI-RADS Category 0: Incomplete 3340F
== END ==
PROVIDERS: PCP Family Medicine; Referring Provider Family Medicine; Visit Provider Family Medicine
DX: R92.8 Other abnormal and inconclusive findings on diagnostic imaging of breast (principal); N64.4 Mastodynia; N64.89 Other specified disorders of breast
CPT/HCPCS: 76642; 77066; G0279

== ENCOUNTER → 2021-06-18 08:17 | Outpatient (CLI) | payer MEDICARE, SELFPAY ==
[2021-06-18 09:25] LABS: Add Manual Diff / Slide Review NO; Basophils Absolute Auto 0 /uL (0-100); Basophils Percent Auto 1.3 % (0-2); Eosinophils Absolute Auto 200 /uL (0-450); Eosinophils Percent Auto 4.1 % (2-4); Hemoglobin 14.8 g/dL (12.0-16.0); Lymphocytes Absolute Auto 1100 /uL (1100-4500); Lymphocytes Percent Auto 29.9 % (25-40); Mean Corpuscular HGB Conc 34.3 % (30-36); Mean Corpuscular Hemoglobin 31.1 PG (26-34); Mean Corpuscular Volume 90.6 fL (80-100); Monocytes Absolute Auto 300 /uL (0-900); Monocytes Percent Auto 9.2 % (3-14); Neutrophils Absolute Auto 2100 /uL (1500-7000); Neutrophils Percent Auto 55.5 % (50-75); Platelet Count 203 X10^3/uL (150-400); Red Blood Cell Count 4.75 X10^6/uL (4.0-5.2); White Blood Cell Count 3.7 X10^3/uL (4.5-11.0)
[2021-06-18 09:34] LABS: Alanine Aminotransferase 18 IU/L (<35); Albumin 4.5 g/dL (3.5-5.0); Albumin Globulin Ratio 1.3 (1.0-2.8); Alkaline Phosphatase 67 U/L (38-126); Aspartate Aminotransferase 34 IU/L (14-36); BUN Creatinine Ratio 13.7 (6-22); Bilirubin Total 1.1 mg/dL (0.2-1.3); Blood Urea Nitrogen 13 mg/dL (7-17); Calcium 9.8 mg/dL (8.4-10.2); Carbon Dioxide 31 mmol/L (22-32); Chloride 106 mmol/L (98-107); Cholesterol 237 mg/dL (140-199); Estimated Glomerular Filt Rate > 60 mL/min (>60); Globulin 3.5 g/dL (1.7-4.1); Glucose 96 mg/dL (80-110); HDL Cholesterol 88 mg/dL (40-60); HEMOLYSIS < 15 (0-50); LDL Cholesterol Calculated 133 mg/dL (<100); Potassium 3.9 mmol/L (3.4-5.1); Sodium 141 mmol/L (137-145); Triglycerides 81 mg/dL (35-150)
== END ==
PROVIDERS: Physician Assistant; PCP Family Medicine; Referring Provider Family Medicine; Visit Provider Family Medicine
DX: G44.219 Episodic tension-type headache, not intractable (principal); I70.8 Atherosclerosis of other arteries; Z13.6 Encounter for screening for cardiovascular disorders; Z13.0 Encounter for screening for diseases of the blood and blood-forming organs and certain disorders involving the immune mechanism
CPT/HCPCS: 36415; 80053; 80061; 85025

== ENCOUNTER → 2021-08-08 08:37 | Outpatient (CLI) | payer MEDICARE, SELFPAY ==
[2021-08-08 09:28] LABS: Add Manual Diff / Slide Review NO; Basophils Absolute Auto 0 /uL (0-100); Basophils Percent Auto 1.3 % (0-2); Eosinophils Absolute Auto 100 /uL (0-450); Eosinophils Percent Auto 3.2 % (2-4); Hematocrit 41.2 % (36-46); Lymphocytes Absolute Auto 1100 /uL (1100-4500); Lymphocytes Percent Auto 32.9 % (25-40); Mean Corpuscular Hemoglobin 30.6 PG (26-34); Mean Corpuscular Volume 90.2 fL (80-100); Monocytes Absolute Auto 400 /uL (0-900); Monocytes Percent Auto 10.2 % (3-14); Neutrophils Absolute Auto 1800 /uL (1500-7000); Neutrophils Percent Auto 52.4 % (50-75); Platelet Count 197 X10^3/uL (150-400); Red Blood Cell Count 4.56 X10^6/uL (4.0-5.2); Red Cell Distribution Width 13.2 % (11.6-14.8); White Blood Cell Count 3.5 X10^3/uL (4.5-11.0)
== END ==
PROVIDERS: PCP Family Medicine; Referring Provider Physician Assistant; Visit Provider Physician Assistant
DX: D72.9 Disorder of white blood cells, unspecified (principal)
CPT/HCPCS: 36415; 85025

== ENCOUNTER → 2021-08-14 08:50 | Outpatient (CLI) | payer MEDICARE, SELFPAY ==
--- NOTE | 2021-08-14 08:51 | DI.MG.S_ITS ---
BILATERAL DIGITAL SCREENING MAMMOGRAM 3D/2D WITH CAD: 08/14/2021 CLINICAL: Routine screening. Comparison is made to exams dated: 07/26/2020 mammogram, 11/03/2019 mammogram, and 07/29/2018 mammogram - [facility]. The tissue of both breasts is predominantly fatty. Current study was also evaluated with a Computer Aided Detection (CAD) system. There are benign calcifications in both breasts. No significant masses, calcifications, or other findings are seen in either breast. There has been no significant interval change. IMPRESSION: BENIGN There is no mammographic evidence of malignancy. A 1 year screening mammogram is recommended. This exam was interpreted at Station ID: [id number]. NOTE: For mammograms, a report in lay terms will be sent to the patient. Approximately 15% of breast malignancies will not be visualized mammographically. In the management of a palpable breast mass, a negative mammogram must not discourage biopsy of a clinically suspicious lesion. Electronically Signed By: Pablo [email or web address]/[email or web address]:08/14/2021 09:25:03 letter sent: Normal Exam ACR BI-RADS Category 2: Benign Finding(s) 3342F
== END ==
PROVIDERS: PCP Family Medicine; Referring Provider Family Medicine; Visit Provider Family Medicine
DX: Z12.31 Encounter for screening mammogram for malignant neoplasm of breast (principal)
CPT/HCPCS: 77063; 77067

== ENCOUNTER 2021-08-23 13:53 | Emergency (ER) | payer MEDICARE, SELFPAY ==
[2021-08-23 14:09] VITALS: BP 204/95; PULSE 74; RESP 17; TEMP 36.6; O2SAT 100; BMI 22.8
[2021-08-23 14:18] LABS: Add Manual Diff / Slide Review NO; Basophils Absolute Auto 0 /uL (0-100); Basophils Percent Auto 0.6 % (0-2); Eosinophils Absolute Auto 100 /uL (0-450); Eosinophils Percent Auto 1.4 % (2-4); Hematocrit 42.8 % (36-46); Hemoglobin 14.7 g/dL (12.0-16.0); Lymphocytes Absolute Auto 1300 /uL (1100-4500); Lymphocytes Percent Auto 21.9 % (25-40); Mean Corpuscular HGB Conc 34.4 % (30-36); Mean Corpuscular Hemoglobin 31.2 PG (26-34); Mean Corpuscular Volume 90.6 fL (80-100); Monocytes Absolute Auto 500 /uL (0-900); Monocytes Percent Auto 7.7 % (3-14); Neutrophils Absolute Auto 4100 /uL (1500-7000); Neutrophils Percent Auto 68.4 % (50-75); Platelet Count 216 X10^3/uL (150-400); Red Blood Cell Count 4.72 X10^6/uL (4.0-5.2); Red Cell Distribution Width 13.6 % (11.6-14.8)
[2021-08-23 14:21] LABS: Prothrombin Time 11.4 SECONDS (10.1-12.7)
[2021-08-23 14:24] LABS: PTT Partial Thromboplastin Tim 31 SECONDS (26.4-36.2)
[2021-08-23 14:26] LABS: Alanine Aminotransferase 17 IU/L (<35); Albumin 4.5 g/dL (3.5-5.0); Albumin Globulin Ratio 1.3 (1.0-2.8); Alkaline Phosphatase 81 U/L (38-126); Aspartate Aminotransferase 32 IU/L (14-36); BUN Creatinine Ratio 24.7 (6-22); Blood Urea Nitrogen 21 mg/dL (7-17); Calcium 9.6 mg/dL (8.4-10.2); Carbon Dioxide 26 mmol/L (22-32); Chloride 103 mmol/L (98-107); Estimated Glomerular Filt Rate > 60 mL/min (>60); Globulin 3.5 g/dL (1.7-4.1); Glucose 126 mg/dL (80-110); HEMOLYSIS < 15 (0-50); Sodium 138 mmol/L (137-145)
--- NOTE | 2021-08-23 15:15 | ED.GIBLEED ---
HPI - GI Bleed General Chief complaint: GI Bleed Stated complaint: Black stool- sent by Dr Boyer Time Seen by Provider: 08/23/21 14:57 Source: patient Mode of arrival: Ambulatory Limitations: no limitations History of Present Illness HPI Narrative: 76-year-old female who is here under recommendation by her primary doctor's nurse for evaluation of black colored stools. Over the past several weeks/months she has had episodes of dark colored stools. She is not having any vomiting. She thinks she has had a colonoscopy in the past but does not remember when. She has not have any light red bright. No chest pain. No shortness of breath. No abdominal pain. No nausea or vomiting. No pain with bowel movements. No urinary symptoms. Not on blood thinners. No rashes. No headache. No fevers. She states that several weeks ago her primary doctor ordered blood and she states that her labs were ?low. She does not know specifically what value was low. It was repeated several weeks later and again she states that it was ?low? she is scheduled to see Hematology/Oncology. She thinks it is because her doctors think that she has cancer but she is uncertain as to what type of cancer why exactly she is seen in the hematology/oncology providers. She states she feels perfectly fine. Related Data Home Medications Medication Instructions Recorded Confirmed multivitamin (Multiple Vitamins 1 tab PO QDAY ##0 06/24/17 06/19/21 tablet) omega 0-iph-vzl-fish oil 1,000 mg 1,000 mg PO QDAY ##0 06/24/17 06/19/21 (120 mg-180 mg) capsule (Fish Oil) cholecalciferol (vitamin D3) 25 1,000 unit PO DAILY 10/25/17 06/19/21 mcg (1,000 unit) capsule (Vitamin D3) Previous Rx's Medication Instructions Recorded bupropion HCl 150 mg 24 hr tablet, 150 mg PO BID #180 tabs 11/01/20 extended release meloxicam 7.5 mg tablet 7.5 mg PO DAILY #30 tabs 07/31/21 Allergies Allergy/AdvReac Type Severity Reaction Status Date / Time No Known Drug Allergies Allergy Verified 08/23/21 14:12 Review of Systems Review of Systems ROS Unobtainable: All systems reviewed & are unremarkable except as noted in HPI and below Patient History Medical History Chicken pox (1954) Depression Measles Surgical History Anesthesia Status post cholecystectomy (1990) Status post colonoscopy (2014) Family History Father Cancer Lung cancer Smoker Mother Diabetes mellitus Heart disease Brother No problems noted. Grandmother No problems noted. Sister No problems noted. Sister No problems noted. Social History marital status: household members: spouse pets and animals: Yes education level: college occupational status: other seatbelt use: always helmet use: Yes water heater temp set < 120 deg: Yes working smoke detector in home: Yes fire extinguisher in home: Yes carbon monox detector in home: No firearms in home: No Smoking Status: Never smoker alcohol intake: current (rare) during the past year weight has: remained stable well-balanced diet: daily or most days daily servings fruits/veg: other caffeine: Yes eating out: rarely or never Type(s) of exercise: regular exercise frequency: 3-4 times per week duration: 45-60 minutes/day Smoking Status: Never smoker alcohol intake frequency: holidays/special occasions only Substance Use Type: does not use Exam Initial Vital Signs Initial Vital Signs: Vital Signs Temperature 98 F 08/23/21 14:09 Pulse Rate 74 08/23/21 14:09 Respiratory Rate 17 08/23/21 14:09 Blood Pressure 204/95 H 08/23/21 14:09 Pulse Oximetry 100 08/23/21 14:09 Oxygen Delivery Method 08/23/21 14:09 Const General: cooperative and comfortable HENMT Head: normal to inspection and normocephalic Eyes General: Yes appearance normal, both eyes and all related structures Resp Effort & Inspection: normal respiratory effort Cardio Rate: regular rate GI Inspection: normal to inspection and non-distended Neuro General: patient alert, patient awake and moves all extremities Extrem General: normal to inspection Psych Appearance: grossly normal and well kempt Course Orders Ordered: ED Orders 08/23/21 14:05 Complete Blood Count AUTO DIFF Stat Comprehensive Metabolic Panel Stat Partial Thromboplastin Time Stat Prothrombin Time INR Stat Vital Signs Vital signs: Vital Signs - 8 hr 08/23/21 14:09 Temperature 98 F Pulse Rate 74 Respiratory Rate 17 Blood Pressure 204/95 H Pulse Oximetry 100 Oxygen Delivery Method Room Air MDM - GI Bleed Lab Data Result diagrams: 08/23/21 14:05 08/23/21 14:05 Labs: Lab Results 08/23/21 08/23/21 08/23/21 Range/Units 14:05 14:05 14:05 WBC 6.0 (4.5-11.0) X10^3/uL RBC 4.72 (4.0-5.2) X10^6/uL Hgb 14.7 (12.0-16.0) g/dL Hct 42.8 (36-46) % MCV 90.6 (80-100) fL MCH 31.2 (26-34) PG MCHC 34.4 (30-36) % RDW 13.6 (11.6-14.8) % Plt Count 216 (150-400) X10^3/uL Neut % (Auto) 68.4 (50-75) % Lymph % (Auto) 21.9 L (25-40) % [place] % (Auto) 7.7 (3-14) % Eos % (Auto) 1.4 L (2-4) % Baso % (Auto) 0.6 (0-2) % Neut # (Auto) 4100 (0762-5317) /uL Lymph # (Auto) 1300 (4588-5686) /uL [place] # (Auto) 500 (0-900) /uL Eos # (Auto) 100 (0-450) /uL Baso # (Auto) 0 (0-100) /uL PT 11.4 (10.1-12.7) SECONDS INR 1.0 (0.9-1.3) APTT 31 (26.4-36.2) SECONDS Sodium 138 (137-145) mmol/L Potassium 4.0 (3.4-5.1) mmol/L Chloride 103 (98-107) mmol/L Carbon Dioxide 26 (22-32) mmol/L BUN 21 H (7-17) mg/dL Creatinine 0.85 (0.52-1.04) mg/dL Estimated GFR > 60 (>60) mL/min BUN/Creatinine Ratio 24.7 H (6-22) Glucose 126 H (80-110) mg/dL Calcium 9.6 (8.4-10.2) mg/dL Total Bilirubin 1.0 (0.2-1.3) mg/dL AST 32 (14-36) IU/L ALT 17 (<35) IU/L Alkaline Phosphatase 81 (38-126) U/L Total Protein 8.0 (6.3-8.2) g/dL Albumin 4.5 (3.5-5.0) g/dL Globulin 3.5 (1.7-4.1) g/dL Albumin/Globulin Ratio 1.3 (1.0-2.8) MDM Narrative Medical decision making narrative: Vital signs are unremarkable except for hypertension. She has not anemic on her labs. The review of her prior labs show that she has never been anemic. She had 2 prior episodes of low white blood cell count. In a quick review of her primary doctor's notes that does not seem to be any specific clinic no related to these lab values. I am unsure as to why she is specifically supposed to see the hematology/oncology providers. She was told that if she questions this at all that she does need to contact her primary doctor to discuss it. There is no indication for emergent surgical consultation. There is no indication for blood transfusion. No indication for admission to the hospital. Patient was given follow-up information for General surgery. She was given return precautions. She expressed understanding and agreement. Discharge Plan Departure Patient Disposition: Home Clinical Impression: Melena Instructions: Gastrointestinal Bleeding Activity Restrictions/Additional Instructions: I do recommend that you contact your primary doctor to discuss the reasons as to why they want to send you to see the hematology/oncology providers. I also recommend that you contact the general surgeons at the number provided below so that you can get in to discuss the indications for a colonoscopy. Return to the emergency department for any new or worsening symptoms. Prescriptions: No Action bupropion HCl 150 mg tablet extended release 24 hr 150 mg PO BID Qty: 180 3RF multivitamin [Multiple Vitamins] 1 EACH tablet 1 tab PO QDAY Qty: 0 omega 3-rhs-atr-fish oil [Fish Oil] 1,000 MG capsule 1,000 mg PO QDAY Qty: 0 meloxicam 7.5 mg tablet 7.5 mg PO DAILY Qty: 30 1RF cholecalciferol (vitamin D3) [Vitamin D3] 1,000 unit Capsule 1,000 unit PO DAILY Referrals: Ronnie Whelan MD [Physician] - Theresa Boyer MD [Primary Care Provider] - Visit Report Forms: Patient Portal/API
== END 2021-08-23 15:35 | disposition home or self-care (01) ==
PROVIDERS: Emergency Provider Emergency Medicine; PCP Family Medicine
DX: K92.1 Melena (principal)
CPT/HCPCS: 36415; 80053; 85025; 85610; 85730; 99283

== ENCOUNTER → 2021-09-27 09:01 | Outpatient (CLI) | payer MEDICARE, SELFPAY ==
[2021-09-27 10:09] LABS: Add Manual Diff / Slide Review NO; Basophils Absolute Auto 0 /uL (0-100); Basophils Percent Auto 1.1 % (0-2); Eosinophils Absolute Auto 100 /uL (0-450); Eosinophils Percent Auto 2.5 % (2-4); Hematocrit 40.9 % (36-46); Hemoglobin 14.1 g/dL (12.0-16.0); Lymphocytes Absolute Auto 1100 /uL (1100-4500); Lymphocytes Percent Auto 26.3 % (25-40); Mean Corpuscular HGB Conc 34.5 % (30-36); Mean Corpuscular Hemoglobin 31.2 PG (26-34); Mean Corpuscular Volume 90.4 fL (80-100); Monocytes Absolute Auto 400 /uL (0-900); Monocytes Percent Auto 8.9 % (3-14); Neutrophils Absolute Auto 2600 /uL (1500-7000); Neutrophils Percent Auto 61.2 % (50-75); Platelet Count 199 X10^3/uL (150-400); Red Blood Cell Count 4.52 X10^6/uL (4.0-5.2); Red Cell Distribution Width 13.3 % (11.6-14.8); White Blood Cell Count 4.2 X10^3/uL (4.5-11.0)
[2021-09-27 12:08] LABS: Hemoglobin A1C% w Est Avg Glu 5.3 % (4.0-6.0)
== END ==
PROVIDERS: PCP Family Medicine; Referring Provider Family Medicine; Visit Provider Family Medicine
DX: E78.00 Pure hypercholesterolemia, unspecified (principal); Z78.0 Asymptomatic menopausal state; D64.9 Anemia, unspecified; R42 Dizziness and giddiness; R53.81 Other malaise
CPT/HCPCS: 36415; 83036; 85025

== ENCOUNTER → 2021-11-22 09:16 | Outpatient (CLI) | payer MEDICARE, SELFPAY ==
[2021-11-22 11:28] LABS: COVID19 -Nasal RAPID Negative (Negative)
== END ==
PROVIDERS: PCP Family Medicine; Visit Provider Surgery
DX: Z01.812 Encounter for preprocedural laboratory examination (principal); Z20.822 Contact with and (suspected) exposure to COVID-19
CPT/HCPCS: 87635; C9803

== ENCOUNTER 2021-11-23 06:38 | Day surgery (SDC) | payer MEDICARE, SELFPAY ==
[2021-11-23 07:21] VITALS: BP 147/71; PULSE 64; RESP 17; TEMP 36.2; O2SAT 98; BMI 26.6
--- NOTE | 2021-11-23 07:31 | PM.PREOP ---
Pre-operative Note COVID-19 COVID-19 status: Negative Interval Note History & Physical reviewed/Exam performed by Physician: Yes Changes to H&P: No ASA Class (for procedural sedation): II
[2021-11-23] MEDS: fentaNYL 100 MCG/2 ML INJ IV (08:38)
[2021-11-23] MEDS: MIDAZOLAM 5 MG/5 ML VIAL IV (08:39)
[2021-11-23 08:55] VITALS: BP 150/70; PULSE 55; RESP 19; TEMP 37.2; O2SAT 98
[2021-11-23 09:00] VITALS: BP 158/80; PULSE 57; RESP 12; O2SAT 99
[2021-11-23 09:05] VITALS: BP 151/74; PULSE 54; RESP 16; O2SAT 97
[2021-11-23 09:12] VITALS: BP 168/95; PULSE 57; RESP 14; TEMP 36.4; O2SAT 100
[2021-11-23 09:54] VITALS: BP 160/76; PULSE 54; RESP 18; TEMP 36.4; O2SAT 98
--- NOTE | 2021-11-23 11:19 | PM.OP.COLON ---
Operative Date/Time/Diagnoses Pre-op diagnosis: melena, screening Post-op diagnosis: same Procedure & Clinicians Study performed: colonoscopy Same procedure as scheduled: Yes Indications: melena, screening Surgeon: Yulissa Delgado Procedure Notes Procedure in detail: Mrs. Fortune was taken to the endoscopy suite and placed in a left lateral decubitus position. She had conscious sedation with a total of 100 mcg of fentanyl and 5 mg of Versed. Prior to the procedure a time-out was performed. The scope was introduced after a digital rectal exam was performed and a normal with the exception of a small external hemorrhoid that was seen. The scope was advanced and I did have some difficulty rounding the hepatic flexure and required placing the patient supine on the table but eventually was able to reach the cecum. The prep was good the scope withdrawal time was 21 minutes. No further polyps were seen. There were some scattered diverticuli both in the cecum and in the left colon as well. Otherwise no stigmata of bleeding. Sedation minutes: 58 Findings: divertiulosis, internal hemorrhoids and other findings (external hemorrhoids) Specimen(s): none sent Complications: none Post-procedure Recommendations: Colonoscopy in 10 years Plan for aftercare: If the patient should experience any further melena perhaps an EGD should be considered. Disposition: PACU
== END 2021-11-23 09:54 | disposition home or self-care (01) ==
PROVIDERS: PCP Family Medicine; Referring Provider Surgery; Visit Provider Surgery
PROC: 0DJD8ZZ Inspection of Lower Intestinal Tract, Via Natural or Artificial Opening Endoscopic (ICD-10-PCS; CPT 45378; principal; 2021-11-23 07:45)
DX: Z12.11 Encounter for screening for malignant neoplasm of colon (principal); K64.4 Residual hemorrhoidal skin tags; K64.8 Other hemorrhoids
CPT/HCPCS: G0121; 99152; 99153; J2250; J3010

== ENCOUNTER → 2022-01-03 13:23 | Outpatient (CLI) | payer MEDICARE, SELFPAY ==
[2022-01-03 14:03] LABS: Add Manual Diff / Slide Review NO; Basophils Absolute Auto 100 /uL (0-100); Basophils Percent Auto 1.3 % (0-2); Eosinophils Absolute Auto 100 /uL (0-450); Eosinophils Percent Auto 3.4 % (2-4); Hematocrit 41.6 % (36-46); Hemoglobin 14.1 g/dL (12.0-16.0); Lymphocytes Absolute Auto 1400 /uL (1100-4500); Lymphocytes Percent Auto 32.4 % (25-40); Mean Corpuscular HGB Conc 33.8 % (30-36); Mean Corpuscular Hemoglobin 30.8 PG (26-34); Mean Corpuscular Volume 91.1 fL (80-100); Monocytes Absolute Auto 300 /uL (0-900); Neutrophils Absolute Auto 2300 /uL (1500-7000); Neutrophils Percent Auto 54.9 % (50-75); Platelet Count 188 X10^3/uL (150-400); Red Blood Cell Count 4.57 X10^6/uL (4.0-5.2); Red Cell Distribution Width 12.8 % (11.6-14.8); White Blood Cell Count 4.2 X10^3/uL (4.5-11.0)
== END ==
PROVIDERS: PCP Family Medicine; Referring Provider Family Medicine; Visit Provider Family Medicine
DX: D72.819 Decreased white blood cell count, unspecified (principal); E78.00 Pure hypercholesterolemia, unspecified
CPT/HCPCS: 36415; 85025

== ENCOUNTER → 2022-02-12 09:08 | Outpatient (CLI) | payer MEDICARE, SELFPAY ==
[2022-02-12 10:27] LABS: Influenza A - CEPHEID Flu A NEGATIVE (NEGATIVE); Influenza B - CEPHEID Flu B NEGATIVE (NEGATIVE); Respiratory Syncytial Virus Negative (Negative)
[2022-02-12 10:30] LABS: COVID-19 CEPHEID 4-PLEX PCR Negative (Negative)
== END ==
PROVIDERS: PCP Family Medicine; Visit Provider Registered Nurse
DX: R05.1 Acute cough (principal); Z20.822 Contact with and (suspected) exposure to COVID-19
CPT/HCPCS: 0241U

== ENCOUNTER 2022-05-31 13:48 | Emergency (ER) | payer MEDICARE, SELFPAY ==
[2022-05-31] VITALS (13 sets, daily range): BP systolic 166–204; BP diastolic 70–98; PULSE 50–64; RESP 10–21; TEMP 36.6; O2SAT 97–100; BMI 23.6
--- NOTE | 2022-05-31 15:55 | PC.NURSE ---
Patient reports dealing with this for a long time they can never figure out what it is Scheduled to see a neurologist in august. Started gabapentin in March for this pain, reports diarrhea since beginning meds. Patient states right top and temporal side of head is tender to touch, reports no changes in vision. Denies nausea and vomiting. Denies any balance disturbances. Curious about alternative medication for pain. Reports some relief after tylenol this afternoon
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
--- NOTE | 2022-05-31 16:20 | DI.CT.S_ITS ---
PROCEDURE: CT HEAD/BRAIN WO CON INDICATIONS: Headache and elevated BP TECHNIQUE: Noncontrast 4.5 mm thick angled axial sections acquired from the foramen magnum to the vertex, with coronal and sagittal reformats. For radiation dose reduction, the following was used: automated exposure control, adjustment of mA and/or kV according to patient size. COMPARISON: [facility], CT, CT HEAD/BRAIN WO CON, 04/25/2020, 11:15. [facility], CT, CT HEAD/BRAIN WO CON, 06/11/2019, 12:42. FINDINGS: Image quality: Excellent. CSF spaces: Basal cisterns are patent. No extra-axial fluid collections. The ventricles are symmetric in size and shape. Brain: No intracranial bleeds or masses. There is cerebral volume loss for age, with resultant ventricular and sulcal prominence. There are periventricular and deep white matter chronic small vessel ischemic changes. There is intracranial internal carotid artery atherosclerosis. Skull and face: Calvarium and visualized facial bones appear intact, without suspicious lesions. Sinuses: Visualized sinuses and mastoids are clear. IMPRESSION: Normal for age, source of current headache symptoms is not seen. Dictated by: Wojciech Bro M.D. on 05/31/2022 at 16:40 Approved by: Wojciech Bro M.D. on 05/31/2022 at 16:41
--- NOTE | 2022-05-31 16:20 | DI.RAD.S_ITS ---
PROCEDURE: XR CHEST 1V INDICATIONS: chest pain TECHNIQUE: One view of the chest was acquired. COMPARISON: [facility], CR, XR CHEST 1V, 06/11/2019, 12:40. FINDINGS: Surgical changes and devices: None. Lungs and pleura: Lungs are clear. No pleural effusions or pneumothorax. Mediastinum: Mediastinal contours appear normal. Heart size is normal. Bones and chest wall: No suspicious bony lesions. Overlying soft tissues appear unremarkable. IMPRESSION: No acute pulmonary process. Dictated by: Regina Khan M.D. on 05/31/2022 at 17:06 Approved by: Regina Khan M.D. on 05/31/2022 at 17:06
[2022-05-31 17:03] LABS: Appearance Urine UA CLEAR; Bilirubin Urine UA NEGATIVE (NEGATIVE); Color Urine UA YELLOW; Glucose Urine UA NEGATIVE (Negative); Ketones Urine UA NEGATIVE (NEGATIVE); Leukocyte Esterase Urine UA NEGATIVE (NEGATIVE); Nitrite Urine UA NEGATIVE (Negative); Occult Blood Urine UA TRACE-INTACT (Negative); Protein Urine UA NEGATIVE (Negative); Specific Gravity Urine UA <=1.005 (1.000-1.035); Urobilinogen Urine UA 0.2 E.U./dL (0.2)
--- NOTE | 2022-05-31 17:07 | PC.NURSE ---
Holding labetalol to check with provider. Pt heart rate is sinus calderon at 50.
[2022-05-31] MEDS: ACETAMINOPHEN 325 MG TABLET 650 MG PO (17:08)
[2022-05-31 17:17] LABS: RBC Urine 0-1/HPF (0-5/HPF); Squamous Epithelial Cell Urine 0-1 /HPF (0-5/HPF); WBC Urine 0-1/HPF (0-5/HPF)
[2022-05-31 17:18] LABS: Bacteria Urine None Seen; Culture Indicated Urine Cult Not Indicated
[2022-05-31] MEDS: KETOROLAC 30 MG/ML VIAL 15 MG IV (17:19)
[2022-05-31] MEDS: SODIUM CHLORIDE 0.9% 1,000 ML 1000 ML IV (17:20)
[2022-05-31 17:24] LABS: Add Manual Diff / Slide Review NO; Basophils Absolute Auto 0 /uL (0-100); Basophils Percent Auto 1.1 % (0-2); Eosinophils Absolute Auto 0 /uL (0-450); Eosinophils Percent Auto 0.3 % (2-4); Hematocrit 42.8 % (36-46); Hemoglobin 14.4 g/dL (12.0-16.0); Lymphocytes Absolute Auto 1500 /uL (1100-4500); Lymphocytes Percent Auto 38.6 % (25-40); Mean Corpuscular HGB Conc 33.7 % (30-36); Mean Corpuscular Hemoglobin 29.8 PG (26-34); Mean Corpuscular Volume 88.5 fL (80-100); Monocytes Absolute Auto 300 /uL (0-900); Monocytes Percent Auto 8.3 % (3-14); Neutrophils Absolute Auto 1900 /uL (1500-7000); Neutrophils Percent Auto 51.7 % (50-75); Platelet Count 189 X10^3/uL (150-400); Red Blood Cell Count 4.83 X10^6/uL (4.0-5.2); Red Cell Distribution Width 13.4 % (11.6-14.8); White Blood Cell Count 3.8 X10^3/uL (4.5-11.0)
[2022-05-31 17:27] LABS: Alanine Aminotransferase 29 IU/L (<35); Albumin 4.3 g/dL (3.5-5.0); Albumin Globulin Ratio 1.1 (1.0-2.8); Alkaline Phosphatase 77 U/L (38-126); Aspartate Aminotransferase 45 IU/L (14-36); BUN Creatinine Ratio 25.7 (6-22); Bilirubin Total 1.4 mg/dL (0.2-1.3); Blood Urea Nitrogen 19 mg/dL (7-17); Calcium 9.4 mg/dL (8.4-10.2); Carbon Dioxide 24 mmol/L (22-32); Chloride 106 mmol/L (98-107); Creatine Kinase 81 U/L (30-135); Estimated Glomerular Filt Rate > 60 mL/min (>60); Globulin 3.8 g/dL (1.7-4.1); Glucose 81 mg/dL (80-110); HEMOLYSIS 75 (0-50); Lipase 129 U/L (23-300); Sodium 139 mmol/L (137-145); Total Protein 8.1 g/dL (6.3-8.2)
[2022-05-31 17:28] LABS: Potassium 4.2 mmol/L (3.4-5.1)
[2022-05-31 17:38] LABS: Troponin I < 0.012 ng/mL (0.01-0.034)
== END 2022-05-31 19:26 | disposition home or self-care (01) ==
PROVIDERS: Emergency Provider Physician Assistant Medical; PCP Family Medicine
DX: R51.9 Headache, unspecified (principal); I10 Essential (primary) hypertension; R07.9 Chest pain, unspecified
CPT/HCPCS: 36415; 70450; 71045; 80053; 81001; 82550; 83690; 84484; 85025; 93005; 96361; 96374; 99284; J1885

== ENCOUNTER → 2022-08-15 08:57 | Outpatient (CLI) | payer MEDICARE, SELFPAY ==
--- NOTE | 2022-08-15 08:58 | DI.MG.S_ITS ---
BILATERAL DIGITAL SCREENING MAMMOGRAM 3D/2D WITH CAD: 08/15/2022 CLINICAL: Routine screening. Comparison is made to exams dated: 07/26/2020 mammogram, 11/03/2019 mammogram, 07/29/2018 mammogram, 08/14/2021 mammogram, and 07/26/2020 [facility]. There are scattered areas of fibroglandular density in both breasts (category b / 25%-50% glandular tissue). Current study was also evaluated with a Computer Aided Detection (CAD) system. There are benign calcifications in both breasts. There also are benign post operative findings in the left breast. No significant masses, calcifications, or other findings are seen in either breast. There has been no significant interval change. IMPRESSION: BENIGN There is no mammographic evidence of malignancy. A 1 year screening mammogram is recommended. Based on the Tyrer Cuzick model (a risk assessment model) the patient's lifetime risk is 2.6% and her 10 year risk is 0.0%. According to the ACR, ACS, and NCCN guidelines, an annual breast MRI exam along with mammogram is recommended if the patient's lifetime risk is 20% or greater. This exam was interpreted at Station ID: [id number]. NOTE: For mammograms, a report in lay terms will be sent to the patient. Approximately 15% of breast malignancies will not be visualized mammographically. In the management of a palpable breast mass, a negative mammogram must not discourage biopsy of a clinically suspicious lesion. Electronically Signed By: Pierre [email or web address]:08/15/2022 13:17:23 letter sent: Normal Exam ACR BI-RADS Category 2: Benign Finding(s) [id number]
== END ==
PROVIDERS: PCP Family Medicine; Referring Provider Family Medicine; Visit Provider Family Medicine
DX: Z12.31 Encounter for screening mammogram for malignant neoplasm of breast (principal)
CPT/HCPCS: 77063; 77067

== ENCOUNTER → 2022-09-10 15:21 | Outpatient (CLI) | payer MEDICARE, SELFPAY ==
--- NOTE | 2022-09-10 15:22 | DI.MRI.S_ITS ---
PROCEDURE: MR HEAD/BRAIN WO CON INDICATIONS: chronic headaches TECHNIQUE: Non-contrast axial T1 spin echo, axial T2 fast spin echo, sagittal and axial FLAIR, coronal T2 fast spin echo, axial gradient echo, axial diffusion and ADC through the brain. COMPARISON: [facility], MR, MR HEAD/BRAIN WO CON, 11/13/2017, 7:13. [facility], CT, CT HEAD/BRAIN WO CON, 05/31/2022, 16:26. FINDINGS: Image quality: Excellent. CSF spaces: Ventricles appear symmetric in size and shape. Basal cisterns are patent. No extra-axial fluid collections. Brain: No intracranial bleeds or mass effects. There is cerebral volume loss for age. There are periventricular and deep white matter chronic small vessel ischemic changes. Brainstem appears normal. Diffusion-weighted images show no acute ischemic insults. No chronic ischemic insults. Normal intravascular flow voids are present. Relatively prominent perivascular spaces are noted. Skull and face: Calvarial bone marrow is normal in signal. Orbits are normal. Note is made of bilateral lens replacements. Incidental note is made of hyperostosis frontalis. This is not considered to be pathologic in a woman of this age. Sinuses: Sinuses and mastoids are clear. IMPRESSION: Brain MRI within normal limits for age, without a cause of chronic headaches identified. To the limits of this noncontrast study, no findings masses or mass effect can be seen. Dictated by: Abdirizak Pittman M.D. on 09/10/2022 at 16:24 Approved by: Abdirizak Pittman M.D. on 09/10/2022 at 16:30
== END ==
PROVIDERS: PCP Family Medicine; Referring Provider Family Medicine; Visit Provider Family Medicine
DX: R41.3 Other amnesia; R51.9 Headache, unspecified
CPT/HCPCS: 70551

== ENCOUNTER → 2022-09-11 06:53 | Outpatient (CLI) | payer MEDICARE, SELFPAY ==
[2022-09-11 07:47] LABS: Add Manual Diff / Slide Review NO; Basophils Absolute Auto 100 /uL (0-100); Basophils Percent Auto 1.5 % (0-2); Eosinophils Absolute Auto 100 /uL (0-450); Eosinophils Percent Auto 3.7 % (2-4); Hematocrit 41.7 % (36-46); Hemoglobin 14.4 g/dL (12.0-16.0); Lymphocytes Absolute Auto 1200 /uL (1100-4500); Lymphocytes Percent Auto 35.5 % (25-40); Mean Corpuscular HGB Conc 34.6 % (30-36); Mean Corpuscular Hemoglobin 31.4 PG (26-34); Mean Corpuscular Volume 90.6 fL (80-100); Monocytes Absolute Auto 300 /uL (0-900); Monocytes Percent Auto 10.1 % (3-14); Neutrophils Absolute Auto 1700 /uL (1500-7000); Neutrophils Percent Auto 49.2 % (50-75); Platelet Count 193 X10^3/uL (150-400); Red Cell Distribution Width 13.5 % (11.6-14.8); White Blood Cell Count 3.4 X10^3/uL (4.5-11.0)
[2022-09-11 08:00] LABS: Alanine Aminotransferase 22 IU/L (<35); Albumin 4.2 g/dL (3.5-5.0); Albumin Globulin Ratio 1.2 (1.0-2.8); Alkaline Phosphatase 68 U/L (38-126); Aspartate Aminotransferase 33 IU/L (14-36); BUN Creatinine Ratio 23.1 (6-22); Bilirubin Total 1.4 mg/dL (0.2-1.3); Blood Urea Nitrogen 21 mg/dL (7-17); Calcium 9.4 mg/dL (8.4-10.2); Carbon Dioxide 29 mmol/L (22-32); Chloride 106 mmol/L (98-107); Cholesterol 246 mg/dL (140-199); Estimated Glomerular Filt Rate > 60 mL/min (>60); Globulin 3.5 g/dL (1.7-4.1); Glucose 94 mg/dL (80-110); HDL Cholesterol 89 mg/dL (40-60); HEMOLYSIS < 15 (0-50); LDL Cholesterol Calculated 143 mg/dL (<100); Potassium 4.6 mmol/L (3.4-5.1); Sodium 140 mmol/L (137-145); Total Protein 7.7 g/dL (6.3-8.2); Triglycerides 69 mg/dL (35-150)
[2022-09-11 08:30] LABS: Vitamin D 25 Hydroxy (D3) 41.1 ng/mL (30.0-100.0)
[2022-09-11 08:45] LABS: TSH w/ Reflex to FT4 1.49 uIU/mL (0.47-4.68)
== END ==
PROVIDERS: PCP Family Medicine; Referring Provider Family Medicine; Visit Provider Family Medicine
DX: D72.819 Decreased white blood cell count, unspecified (principal); E78.00 Pure hypercholesterolemia, unspecified; R51.9 Headache, unspecified; G89.29 Other chronic pain; R41.3 Other amnesia
CPT/HCPCS: 36415; 80053; 80061; 82306; 84443; 85025

== ENCOUNTER → 2022-10-10 16:33 | Outpatient (CLI) | payer MEDICARE, SELFPAY ==
[2022-10-10 17:54] LABS: Add Manual Diff / Slide Review NO; Basophils Absolute Auto 0 /uL (0-100); Basophils Percent Auto 1.1 % (0-2); Eosinophils Absolute Auto 100 /uL (0-450); Eosinophils Percent Auto 3.5 % (2-4); Hematocrit 39.5 % (36-46); Hemoglobin 13.9 g/dL (12.0-16.0); Lymphocytes Absolute Auto 1700 /uL (1100-4500); Mean Corpuscular HGB Conc 35.3 % (30-36); Mean Corpuscular Hemoglobin 31.7 PG (26-34); Mean Corpuscular Volume 89.8 fL (80-100); Monocytes Absolute Auto 400 /uL (0-900); Monocytes Percent Auto 8.3 % (3-14); Neutrophils Absolute Auto 2000 /uL (1500-7000); Neutrophils Percent Auto 48.1 % (50-75); Platelet Count 185 X10^3/uL (150-400); Red Cell Distribution Width 13.3 % (11.6-14.8); White Blood Cell Count 4.2 X10^3/uL (4.5-11.0)
[2022-10-10 18:14] LABS: Alanine Aminotransferase 18 IU/L (<35); Albumin Globulin Ratio 1.2 (1.0-2.8); Alkaline Phosphatase 64 U/L (38-126); Aspartate Aminotransferase 32 IU/L (14-36); BUN Creatinine Ratio 28.4 (6-22); Bilirubin Total 0.8 mg/dL (0.2-1.3); Blood Urea Nitrogen 23 mg/dL (7-17); Calcium 9.3 mg/dL (8.4-10.2); Carbon Dioxide 24 mmol/L (22-32); Chloride 105 mmol/L (98-107); Cholesterol 232 mg/dL (140-199); Estimated Glomerular Filt Rate > 60 mL/min (>60); Globulin 3.3 g/dL (1.7-4.1); Glucose 92 mg/dL (80-110); HDL Cholesterol 80 mg/dL (40-60); HEMOLYSIS < 15 (0-50); LDL Cholesterol Calculated 125 mg/dL (<100); Potassium 3.7 mmol/L (3.4-5.1); Sodium 136 mmol/L (137-145); Total Protein 7.3 g/dL (6.3-8.2); Triglycerides 135 mg/dL (35-150)
[2022-10-10 18:32] LABS: Vitamin D 25 Hydroxy (D3) 39.9 ng/mL (30.0-100.0)
== END ==
PROVIDERS: PCP Family Medicine; Referring Provider Family Medicine; Visit Provider Family Medicine
DX: E78.00 Pure hypercholesterolemia, unspecified (principal); F32.9 Major depressive disorder, single episode, unspecified; Z78.0 Asymptomatic menopausal state; Z86.79 Personal history of other diseases of the circulatory system
CPT/HCPCS: 36415; 80053; 80061; 82306; 84443; 85025

== ENCOUNTER → 2023-03-14 07:48 | Outpatient (CLI) | payer MEDICARE, SELFPAY ==
--- NOTE | 2023-03-14 07:49 | DI.US.S_ITS ---
PROCEDURE: US ABDOMEN LIMITED INDICATIONS: Epigastric pain TECHNIQUE: Real-time scanning was performed of the abdominal and retroperitoneal organs, with image documentation. COMPARISON: None. FINDINGS: Liver: Liver is normal in size and homogeneous in echotexture. Gallbladder: Surgically absent Biliary ducts: Intrahepatic bile ducts are non-dilated. Extrahepatic bile duct caliber measures 8.3 mm. Normal is 6-7 mm or less in diameter, or 10 mm or less post-cholecystectomy. Pancreas: Visualized portions of the pancreas are sonographically normal. Right Kidney: Normal in size and echotexture, without hydronephrosis. No solid masses. Simple cyst measuring up to 3.6 centimeters. Miscellaneous: No free abdominal fluid. IMPRESSION: Status post cholecystectomy. Remainder of exam is unremarkable. Approved by: Radha Lyon M.D. on 03/14/2023 at 9:07
== END ==
PROVIDERS: PCP Family Medicine; Referring Provider Physician Assistant; Visit Provider Physician Assistant
DX: N95.0 Postmenopausal bleeding (principal); R10.13 Epigastric pain; Z90.49 Acquired absence of other specified parts of digestive tract
CPT/HCPCS: 76705

== ENCOUNTER 2023-06-12 08:15 | Emergency (ER) | payer MEDICARE, SELFPAY ==
[2023-06-12] VITALS (18 sets, daily range): BP systolic 146–246; BP diastolic 67–107; PULSE 58–71; RESP 12–20; TEMP 36.6; O2SAT 96–99; BMI 28.1
--- NOTE | 2023-06-12 08:30 | DI.RAD.S_ITS ---
PROCEDURE: XR CHEST 1V INDICATIONS: chest pain TECHNIQUE: One view of the chest was acquired. COMPARISON: [facility], CR, XR CHEST 1V, 05/31/2022, 16:22. FINDINGS: Surgical changes and devices: None. Lungs and pleura: Lungs are clear. No pleural effusions or pneumothorax. Mediastinum: Mediastinal contours appear normal. Heart size is normal. Bones and chest wall: No suspicious bony lesions. Overlying soft tissues appear unremarkable. IMPRESSION: No acute cardiopulmonary abnormality is seen. Dictated by: Francis Appiah M.D. on 06/12/2023 at 9:13 Approved by: Francis Appiah M.D. on 06/12/2023 at 9:14
--- NOTE | 2023-06-12 08:43 | ED_ITS ---
HPI - Abdominal Pain General Chief Complaint: Abdominal Pain Stated Complaint: abd pain Time Seen by Provider: 06/12/23 08:30 Source: patient, RN notes reviewed and old records reviewed Mode of arrival: Ambulatory Limitations: no limitations History of Present Illness HPI narrative: This is a 78-year-old female with longstanding epigastric pain for the last several months which waxes and wanes in intensity. She states been a little bit worse last week or so. She states it is localized to the epigastric area it is right around the area of the xiphoid process. She states nothing seems to make it better nothing seems to make it worse. She does not appreciate any change with food, exertion or any other activity. No fevers or chills, no cold cough or congestion. No pain up in her chest otherwise. No pressure. No shortness of breath. She states it does not radiate anywhere. She denies any nausea or vomiting. Occasionally has diarrhea but none in the last 2 or 3 days. Her stools have been black and discoloration but no bright red blood. She states they have been discolored for the past several weeks. She denies any urinary symptoms. Patient states she had called her physician to follow-up and was told to come to the ER. She has not currently on any prescription medications. No daily vitamins. She was prescribed omeprazole but never took it. No prior surgeries. No prior EGDs colonoscopies, no prior stress test. No known drug allergies. No tobacco, has not alcoholic drink occasionally, no recreational drugs. Primary care physician is Dr. Melchor. Related Data Home Medications Medication Instructions Recorded Confirmed multivitamin (Multiple Vitamins 1 tab PO QDAY ##0 06/24/17 06/09/23 tablet) estradiol 1 mg tablet 1 mg PO DAILY 01/16/23 06/09/23 progesterone micronized 100 mg 100 mg PO QAM 03/11/23 06/09/23 capsule Previous Rx's Medication Instructions Recorded bupropion HCl 150 mg 24 hr tablet, 150 mg PO QAM #90 tabs 01/08/23 extended release (Wellbutrin XL) omeprazole 20 mg capsule,delayed 20 mg PO DAILY #30 caps 03/12/23 release omeprazole 40 mg capsule,delayed 40 mg PO DAILY #60 caps 06/12/23 release Allergies Allergy/AdvReac Type Severity Reaction Status Date / Time gabapentin AdvReac Intermediate headaches Verified 06/09/23 11:03 Review of Systems Review of Systems ROS Unobtainable: All systems reviewed & are unremarkable except as noted in HPI and below Patient History Medical History Chronic headaches Black stool Chicken pox (1954) Depression Measles Surgical History Anesthesia Status post colonoscopy (2014) Status post cholecystectomy (1990) Family History Father Cancer Lung cancer Smoker Mother Diabetes mellitus Heart disease Brother No problems noted. Grandmother No problems noted. Sister No problems noted. Sister No problems noted. Family/Other Accident Social History marital status: household members: spouse pets and animals: Yes education level: college occupational status: other seatbelt use: always helmet use: Yes water heater temp set < 120 deg: Yes working smoke detector in home: Yes fire extinguisher in home: Yes carbon monox detector in home: No firearms in home: No Smoking Status: Never smoker alcohol intake: current during the past year weight has: remained stable well-balanced diet: daily or most days daily servings fruits/veg: other caffeine: Yes eating out: rarely or never Type(s) of exercise: regular exercise frequency: 3-4 times per week duration: 45-60 minutes/day Smoking Status: Never smoker alcohol intake frequency: 0-2 drinks per day Substance Use Type: does not use Exam Narrative Exam Narrative: GENERAL: Alert and oriented x three, female in mild distress. HEENT: Head normocephalic, atraumatic, EOMI, pupils reactive, face symmetric, moist mucous membranes NECK: Supple, full range of motion CARDIOVASCULAR: Regular rate and rhythm without murmurs, rubs or gallops. No JVD, no edema bilateral lower extremities. RESPIRATORY: Breath sounds equal bilaterally, no wheezes rales or rhonchi. No tachypnea or accessory muscle use. ABDOMEN: Soft, patient has tenderness localized to the epigastric region. No other abdominal pain Normoactive bowel sounds all 4 quadrants. No guarding or rebound, rigidity, no mass, on BRONSON, no masses, brown stool, stool occult is negative. 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 : No CVA tenderness EXTREMITIES: Normal range of motion, no clubbing or edema. Neurovascularly intact NEUROLOGICAL: Cranial nerves II through XII grossly intact. Moving all extremities SKIN: Warm, dry, no petechiae, no rashes or lesions. Initial Vital Signs Initial Vital Signs: Vital Signs Pulse Rate 71 06/12/23 08:20 Pulse Oximetry 99 06/12/23 08:20 Course Orders Ordered: ED Orders 06/12/23 10:30 Trop I [Troponin I] Stat Discontinued Medications Al Hydrox/Mg Hydrox/Simethicone 20 ml/ Lidocaine HCl 15 ml 0 ml PO NOW ONE Stop: 06/12/23 08:53 Last Admin: 06/12/23 08:59 Dose: 35 ml Documented By: NOY Pantoprazole Sodium (Pantoprazole 40 Mg Vial) 80 mg IV NOW ONE Stop: 06/12/23 08:53 Last Admin: 06/12/23 08:59 Dose: 80 mg Documented By: NOY Vital Signs Vital signs: Vital Signs - 8 hr 06/12/23 10:15 06/12/23 10:15 06/12/23 10:30 Temperature Pulse Rate 59 L 61 Respiratory Rate 13 16 Blood Pressure 146/67 H Pulse Oximetry 97 97 06/12/23 10:30 06/12/23 10:45 06/12/23 10:45 Temperature Pulse Rate 58 L Respiratory Rate 13 Blood Pressure 199/84 H 184/79 H Pulse Oximetry 98 06/12/23 11:00 06/12/23 11:01 06/12/23 11:01 Temperature Pulse Rate 60 60 Respiratory Rate 17 18 Blood Pressure 161/72 H Pulse Oximetry 96 97 06/12/23 11:16 06/12/23 11:41 Temperature 97.9 F Pulse Rate Respiratory Rate 16 Blood Pressure Pulse Oximetry MDM - Abdominal Pain Lab Data 06/12/23 08:32 06/12/23 08:32 Labs: Lab Results 06/12/23 06/12/23 Range/Units 08:32 10:30 WBC 5.1 (4.5-11.0) X10^3/uL RBC 4.94 (4.0-5.2) X10^6/uL Hgb 15.6 (12.0-16.0) g/dL Hct 45.8 (36-46) % MCV 92.7 (80-100) fL MCH 31.5 (26-34) PG MCHC 34.0 (30-36) % RDW 13.8 (11.6-14.8) % Plt Count 123 L (150-400) X10^3/uL Neut % (Auto) Not Reportable Lymph % (Auto) Not Reportable [place] % (Auto) Not Reportable Eos % (Auto) Not Reportable Baso % (Auto) Not Reportable Lymph # (Auto) Not Reportable [place] # (Auto) Not Reportable Baso # (Auto) Not Reportable Total Counted 100 Seg Neutrophils % 48.0 (38-70) % Lymphocytes % (Manual) 36.0 (25-45) % Monocytes % (Manual) 14.0 H (2-11) % Eosinophils % (Manual) 2.0 (2-4) % Neutrophils # (Manual) 2448 L (6449-6085) /uL RBC Morphology Normal morphology PT 10.9 (9.4-12.5) SECONDS INR 1.0 (0.9-1.3) APTT 22 L (25.1-36.5) SECONDS Sodium 138 (137-145) mmol/L Potassium 4.3 (3.4-5.1) mmol/L Chloride 107 (98-107) mmol/L Carbon Dioxide 27 (22-32) mmol/L BUN 22 H (7-17) mg/dL Creatinine 0.83 (0.52-1.04) mg/dL Estimated GFR > 60 (>60) mL/min BUN/Creatinine Ratio 26.5 H (6-22) Glucose 94 (80-110) mg/dL Calcium 10.2 (8.4-10.2) mg/dL Magnesium 2.2 (1.6-2.3) mg/dL Total Bilirubin 1.4 H (0.2-1.3) mg/dL AST 39 H (14-36) IU/L ALT 23 (<35) IU/L Alkaline Phosphatase 69 (38-126) U/L Total Creatine Kinase 69 (30-135) U/L Troponin I < 0.012 < 0.012 (0.01-0.034) ng/mL Total Protein 8.6 H (6.3-8.2) g/dL Albumin 4.4 (3.5-5.0) g/dL Globulin 4.2 H (1.7-4.1) g/dL Albumin/Globulin Ratio 1.0 (1.0-2.8) Lipase 108 (23-300) U/L Point of care testing: Point of Care Testing Stool Occult Blood Negative ECG Data Attestation: I personally reviewed and interpreted this ECG as follows: Prior ECG tracings: available for review Interpretation: Sinus rhythm first-degree AV block rate of 61 [place] 254 QRS 88 QTC of 418. No acute ST elevation, patient has prior from 05/31/2022 that does not show any acute ST changes. MDM Narrative Medical decision making narrative: 78-year-old female with chronic persistent epigastric pain for the past several months slowly worsening over time with report of melanotic stools. Patient presents quite hypertensive. She is mildly tender on examination at the epigastric region. Based on age we will continue with cardiac workup but my suspicion is possible ulcer with GI bleed, ect. Patient's labs show white count of 5.1 hemoglobin of 15.6 platelets are 123, have not been low in the past. Sodium is 138 potassium is 4 3 BUN 22 with creatinine 0.83, glucose is 94, bilirubin is 1.4 has been intermittently elevated on and off in the past, AST is 39 with a ALT of 23 alk-phos of 69 and a normal lipase. CK and troponin are negative. Stool occult is negative. We will repeat troponin but patient's symptoms resolved after GI cocktail and Protonix. Troponin was repeated and is negative Chest x-ray is negative EKG showed no acute changes. Patient noted she has been using a lot of Pepto-Bismol lately which maybe contributing to her dark stools. Stool occult was negative. Discussed with patient would like to repeat troponin would recommend EGD for evaluation for possible upper GI bleed/ulcer. She is hemodynamically stable. Blood pressure has not improved without any interventions. She has not had any stool output department. Discharge Plan Departure Patient Disposition: Home Clinical Impression: Epigastric pain Instructions: DI for Epigastric Pain Activity Restrictions/Additional Instructions: I suspect you may have an ulcer causing your symptoms. Please follow-up with General surgery or Gastroenterology to be set up for an EGD. Take omeprazole 40 mg once daily. Prescription sent to [facility] in [place]. Please return for fevers new or worsening abdominal back or flank pain, persistent vomiting, persistently black or bloody stools, lightheadedness or passing out or other new or concerning changes. Prescriptions: New omeprazole 40 mg capsule,delayed release(DR/EC) 40 mg PO DAILY Qty: 60 0RF No Action multivitamin [Multiple Vitamins] 1 EACH tablet 1 tab PO QDAY Qty: 0 omeprazole 20 mg capsule,delayed release(DR/EC) 20 mg PO DAILY Qty: 30 0RF bupropion HCl [Wellbutrin XL] 150 mg tablet extended release 24 hr 150 mg PO QAM Qty: 90 3RF progesterone micronized 100 mg capsule 100 mg PO QAM Rx Instructions: off 7 days; repeat cycle estradiol 1 mg tablet 1 mg PO DAILY Rx Instructions: off 1 week; repeat cycle Referrals: Ivan Melchor MD [Primary Care Provider] - Ronnie Whelan MD [Physician] - Ignacio Walker MD [Physician] - Stand Alone Forms: Patient Portal/API
[2023-06-12] MEDS: PANTOPRAZOLE 40 MG VIAL 80 MG IV (08:59)
[2023-06-12] MEDS: MAG HYDROX/ALUMINUM/SIMETH SUS 20 ML, LIDOCAINE VISCOUS 2% 15 ML PO (08:59)
[2023-06-12 09:00] LABS: Alanine Aminotransferase 23 IU/L (<35); Albumin 4.4 g/dL (3.5-5.0); Alkaline Phosphatase 69 U/L (38-126); Aspartate Aminotransferase 39 IU/L (14-36); BUN Creatinine Ratio 26.5 (6-22); Bilirubin Total 1.4 mg/dL (0.2-1.3); Blood Urea Nitrogen 22 mg/dL (7-17); Calcium 10.2 mg/dL (8.4-10.2); Carbon Dioxide 27 mmol/L (22-32); Chloride 107 mmol/L (98-107); Creatine Kinase 69 U/L (30-135); Estimated Glomerular Filt Rate > 60 mL/min (>60); Globulin 4.2 g/dL (1.7-4.1); Glucose 94 mg/dL (80-110); Lipase 108 U/L (23-300); Magnesium 2.2 mg/dL (1.6-2.3); Sodium 138 mmol/L (137-145); Total Protein 8.6 g/dL (6.3-8.2)
[2023-06-12 09:04] LABS: Prothrombin Time 10.9 SECONDS (9.4-12.5)
[2023-06-12 09:05] LABS: HEMOLYSIS 56 (0-50)
[2023-06-12 09:06] LABS: Potassium 4.3 mmol/L (3.4-5.1)
[2023-06-12 09:07] LABS: PTT Partial Thromboplastin Tim 22 SECONDS (25.1-36.5)
[2023-06-12 09:11] LABS: Troponin I < 0.012 ng/mL (0.01-0.034)
[2023-06-12 09:15] LABS: Hematocrit 45.8 % (36-46); Hemoglobin 15.6 g/dL (12.0-16.0); Mean Corpuscular Hemoglobin 31.5 PG (26-34); Mean Corpuscular Volume 92.7 fL (80-100); Platelet Count 123 X10^3/uL (150-400); Red Blood Cell Count 4.94 X10^6/uL (4.0-5.2); Red Cell Distribution Width 13.8 % (11.6-14.8); White Blood Cell Count 5.1 X10^3/uL (4.5-11.0)
[2023-06-12 09:17] LABS: Add Manual Diff / Slide Review YES
--- NOTE | 2023-06-12 09:44 | PC.NURSE ---
RN explained to pt that we are waiting on stool test; further lab results, monitor blood pressure, and MD to come update pt on results. Pt agreed. Minutes later, pt told THERMODYNAMICS ENGINEER that she wanted to leave and no one talked to her and the RN came in, turned her back and left. Helen MURPHY and myself walked into pt room and reupdated pt. Pt seemed to agree again that we need to wait a little bit longer for these tests.
[2023-06-12 10:41] LABS: Neutrophils Absolute Manual 2448 /uL (3000-5900); RBC Morphology Normal Morphology; Total Cells Counted 100
[2023-06-12 11:11] LABS: Troponin I < 0.012 ng/mL (0.01-0.034)
--- NOTE | 2023-06-12 11:35 | PC.NURSE ---
Pt called out for RN asking for update. Again, RN talked w/ pt informed of reason for wait and explained that the ER process in terms of acuity, time for lab/radiology reads. Pt understood and apologized for complaining. RN removed IV for pt comfort. Pending ER MD to see pt.
== END 2023-06-12 11:42 | disposition home or self-care (01) ==
PROVIDERS: Emergency Provider Emergency Medicine; PCP Family Medicine
DX: R10.13 Epigastric pain (principal)
CPT/HCPCS: 36415; 71045; 80053; 82272; 82550; 83690; 83735; 84484; 85007; 85025; 85610; 85730; 93005; 93010; 96374; 99284; C9113

== ENCOUNTER → 2023-06-24 10:02 | Outpatient (CLI) | payer MEDICARE, SELFPAY ==
--- NOTE | 2023-06-24 12:08 | DI.CT.S_ITS ---
PROCEDURE: CT CHEST ABDOMEN W CON INDICATIONS: epigastric pain TECHNIQUE: After the administration of intravenous contrast, 5 mm thick sections acquired from the lung apices to the iliac crests. 5 mm coronal and sagittal reformats were performed, with additional 7 mm coronal MIP reformats through the lungs. For radiation dose reduction, the following was used: automated exposure control, adjustment of mA and/or kV according to patient size. COMPARISON: [facility], , ABDOMEN LIMITED, 03/14/2023, 7:56. FINDINGS: Image quality: Diagnostic Lungs and pleura: Scattered scarring and atelectasis. Mild peripheral reticulation. No honeycombing. Pleural effusions or dense airspace disease. No focal suspicious pulmonary nodule. Micro nodules and granulomas are present, for example in the right lung image . These do not require dedicated follow-up unless the patient is considered high risk. Mediastinum, heart, and esophagus: Normal heart size. No pathologic lymph nodes by size criteria. Chest wall and thyroid: Unremarkable Liver: Unremarkable Gallbladder and biliary system: Absent, nondilated allowing for postsurgical state Pancreas: No pathologic ductal dilation. Senescent ectasia is present near the head Spleen: Nonenlarged Adrenals: No discrete nodules Kidneys: There are renal cysts. No complicated lesion requiring follow-up. Moderately atrophic, asymmetric left kidney. No hydronephrosis. Nonobstructing calculi in the right lower pole. Partially visualized ectasia of the right ureter Vessels and lymph nodes: No abdominal aortic aneurysm. The main portal vein is patent. No pathologic lymph nodes by size criteria. Bowel and peritoneum: There is mild proximal gastric wall thickening, not well evaluated on CT due to under distension. No pathologic ascites. No small bowel obstruction in the field of view. There are colonic diverticula. Body wall: Unremarkable Bones: Degenerative changes, no acute or suspicious findings. IMPRESSION: Mild proximal gastric wall thickening, particularly near the fundus. This may represent gastritis, however consider endoscopy correlation for any underlying lesion if clinically indicated. No acute thoracic or abdominal abnormality otherwise. Nonacute findings described above. Dictated by: Nigel Watkins M.D. on 06/24/2023 at 15:10 Approved by: Nigel Watkins M.D. on 06/24/2023 at 15:21
== END ==
LOC: CT 10:03
PROVIDERS: PCP Family Medicine; Referring Provider Surgery; Visit Provider Surgery
DX: N28.1 Cyst of kidney, acquired (principal); N20.0 Calculus of kidney; R10.13 Epigastric pain; K57.90 Diverticulosis of intestine, part unspecified, without perforation or abscess without bleeding
CPT/HCPCS: 71260; 74160; Q9967

== ENCOUNTER 2023-07-07 06:43 | Day surgery (SDC) | payer MEDICARE, SELFPAY ==
--- NOTE | 2023-07-07 | PATH_ITS ---
[facility] Accession Number: [id number] No. of containers..02 Tissue . 01 Material submitted: . PART A: gastrointestinal site - ANTRUM PART B: gastrointestinal site - FUNDUS . 01 Diagnosis: Part A: ANTRUM: Gastric mucosa with mild chronic inflammation. No Helicobacter organisms identified. No intestinal metaplasia, dysplasia, or malignancy identified. . Part B: FUNDUS: Gastric mucosa with mild chronic inflammation. No Helicobacter organisms identified. No intestinal metaplasia, dysplasia, or malignancy identified. [facility] 07/14/20231340 Local . 01 Comment: Parts A, B: An immunohistochemical stain was performed to evaluate for Helicobacter organisms and is negative. The control stains appropriately. * This test was developed and its performance characteristics determined by [employer]. It has not been cleared or approved by the U.S. Food and Drug Administration. The FDA has determined that such clearance or approval is not necessary. This test is used for clinical purposes. It should not be regarded as investigational or for research. . 01 Electronically signed: . Ace Savage MD, Pathologist NPI- [id number] . 01 Gross description: . Part A: ANTRUM: Received in formalin are 2 fragment(s) of reese, soft tissue measuring 0.1 x 0.1 x 0.1 cm to 0.4 x 0.1 x 0.1 cm submitted entirely in 1 cassette(s) . Part B: FUNDUS: Received in formalin are multiple fragment(s) of reese, soft tissue measuring 0.1 x 0.1 x 0.1 cm to 0.3 x 0.2 x 0.2 cm submitted entirely in 1 cassette(s) /ARIES 07/14/2023 1341 Local . 01 Pathologist provided ICD-10: K29.50 . 01 CPT . 484569, 155753, [id number] Specimen Comment: A courtesy copy of this report has been sent to [phone] Performed at: 01 [facility] [address] [place] [address] [id number] MD Ace Savage MD Phone: [phone]
[2023-07-07] MEDS: LACTATED RINGERS 1,000 ML 42 ML IV (07:23)
[2023-07-07 07:29] VITALS: BP 180/89; PULSE 68; RESP 17; TEMP 36.2; O2SAT 99
--- NOTE | 2023-07-07 07:48 | PM.PREOP ---
Pre-operative Note COVID-19 COVID-19 status: Not tested Interval Note History & Physical reviewed/Exam performed by Physician: Yes Changes to H&P: No ASA Class (for procedural sedation): III
[2023-07-07 08:10] VITALS: BP 140/71; PULSE 68; RESP 16; TEMP 36.7; O2SAT 98
--- NOTE | 2023-07-07 08:10 | PM.OP.EGD ---
Operative Date/Time/Diagnoses Date of procedure: 07/07/23 Time of procedure: 08:10 Pre-op diagnosis: Abnormal CT scan Post-op diagnosis: same Procedure & Clinicians Study performed: Esophagogastroduodenoscopy Same procedure as scheduled: Yes Surgeon: Alex Zhong Procedure Notes Procedure in detail: Surgeon: Alex Zhong MD Anesthesia: Eva Avel MACKEY A timeout was performed. A bite blocked was placed. The patient was positioned in the left lateral decubitus position. Anesthesia was administered. The endoscope was inserted through the bite block and passed through the esophagus and stomach and into the duodenum. The duodenal mucosa appeared normal. The scope was withdrawn into the duodenal bulb and no other abnormalities were noted. The scope was withdrawn into the stomach. There was some mild inflammation around the antrum and random biopsies were taken with the cold forceps. The rest of the stomach was normal. The scope was retroflexed and no obvious abnormalities were noted at the fundus however random biopsies were taken with cold forceps due to the CT findings of thickening. The scope was withdrawn into the esophagus and no abnormalities were seen. The remainder of the esophagus was normal. The scope was withdrawn. The patient was awakened and brought to recovery. Sedation time: 5 minutes Findings: Mild distal gastritis and antritis Post-procedure Disposition: PACU
[2023-07-07 08:15] VITALS: BP 150/75; PULSE 63; RESP 16; O2SAT 98
[2023-07-07 08:24] VITALS: BP 140/70; PULSE 60; RESP 16; TEMP 36.2; O2SAT 98
[2023-07-07 08:26] VITALS: BP 150/70; PULSE 78; RESP 16; TEMP 36.8; O2SAT 98
== END 2023-07-07 08:40 | disposition home or self-care (01) ==
PROVIDERS: PCP Family Medicine; Referring Provider Surgery; Visit Provider Surgery
PROC: 0DJ08ZZ Inspection of Upper Intestinal Tract, Via Natural or Artificial Opening Endoscopic (ICD-10-PCS; CPT 43239; principal; 2023-07-07 07:45)
DX: K29.50 Unspecified chronic gastritis without bleeding (principal)
CPT/HCPCS: 43239; J2704

== ENCOUNTER → 2023-08-12 07:05 | Outpatient (CLI) | payer MEDICARE, SELFPAY ==
[2023-08-12 08:44] LABS: Hematocrit 41.3 % (36-46); Hemoglobin 14.2 g/dL (12.0-16.0); Mean Corpuscular HGB Conc 34.4 % (30-36); Mean Corpuscular Hemoglobin 31.3 PG (26-34); Mean Corpuscular Volume 90.9 fL (80-100); Platelet Count 199 X10^3/uL (150-400); Red Blood Cell Count 4.54 X10^6/uL (4.0-5.2); White Blood Cell Count 3.6 X10^3/uL (4.5-11.0)
[2023-08-12 09:29] LABS: Alanine Aminotransferase 18 IU/L (<35); Albumin 4.2 g/dL (3.5-5.0); Albumin Globulin Ratio 1.5 (1.0-2.8); Alkaline Phosphatase 71 U/L (38-126); Aspartate Aminotransferase 32 IU/L (14-36); BUN Creatinine Ratio 20.7 (6-22); Blood Urea Nitrogen 18 mg/dL (7-17); Calcium 9.6 mg/dL (8.4-10.2); Carbon Dioxide 26 mmol/L (22-32); Chloride 109 mmol/L (98-107); Cholesterol 234 mg/dL (140-199); Estimated Glomerular Filt Rate > 60 mL/min (>60); Globulin 2.8 g/dL (1.7-4.1); Glucose 104 mg/dL (80-110); HDL Cholesterol 103 mg/dL (40-60); HEMOLYSIS < 15 (0-50); LDL Cholesterol Calculated 116 mg/dL (<100); Potassium 4.5 mmol/L (3.4-5.1); Sodium 140 mmol/L (137-145); Triglycerides 74 mg/dL (35-150)
[2023-08-12 09:37] LABS: Vitamin D 25 Hydroxy (D3) 44.7 ng/mL (30.0-100.0)
[2023-08-12 09:51] LABS: TSH w/ Reflex to FT4 1.14 uIU/mL (0.47-4.68)
[2023-08-12 10:09] LABS: Vitamin B12 641 pg/mL (239-931)
== END ==
PROVIDERS: PCP Nurse Practitioner Family; Referring Provider Nurse Practitioner Family; Visit Provider Nurse Practitioner Family
DX: R41.3 Other amnesia (principal)
CPT/HCPCS: 36415; 80053; 80061; 82306; 82607; 84443; 85027

== ENCOUNTER → 2023-10-04 09:36 | Outpatient (CLI) | payer MEDICARE, SELFPAY ==
--- NOTE | 2023-10-04 09:37 | DI.MG.S_ITS ---
BILATERAL DIGITAL SCREENING MAMMOGRAM 3D/2D WITH CAD: 10/04/2023 CLINICAL: Routine screening. Comparison is made to exams dated: 08/15/2022 mammogram, 08/14/2021 mammogram, 07/26/2020 mammogram, and 11/03/2019 mammogram - [facility]. There are scattered areas of fibroglandular density in both breasts (category b / 25%-50% glandular tissue). Current study was also evaluated with a Computer Aided Detection (CAD) system. There are benign post operative findings in the left breast. No significant masses, calcifications, or other findings are seen in either breast. There has been no significant interval change. IMPRESSION: BENIGN There is no mammographic evidence of malignancy. A 1 year screening mammogram is recommended. Based on the Tyrer Cuzick model (a risk assessment model) the patient's lifetime risk is 2.4% and her 10 year risk is 0.0%. According to the ACR, ACS, and NCCN guidelines, an annual breast MRI exam along with mammogram is recommended if the patient's lifetime risk is 20% or greater. This exam was interpreted at Station ID: [id number]. NOTE: For mammograms, a report in lay terms will be sent to the patient. Approximately 15% of breast malignancies will not be visualized mammographically. In the management of a palpable breast mass, a negative mammogram must not discourage biopsy of a clinically suspicious lesion. Electronically Signed By: Radha Lyon M.D., Ph.D. missy/beatriz:10/06/2023 21:44:07 letter sent: Normal Exam ACR BI-RADS Category 2: Benign Finding(s) [id number]
== END ==
LOC: MAMMO 09:37
PROVIDERS: PCP Nurse Practitioner Family; Referring Provider Nurse Practitioner Family; Visit Provider Nurse Practitioner Family
DX: Z12.31 Encounter for screening mammogram for malignant neoplasm of breast (principal); R92.323 Mammographic fibroglandular density, bilateral breasts
CPT/HCPCS: 77063; 77067

== ENCOUNTER → 2024-06-24 14:00 | Outpatient (CLI) | payer MEDICARE, SELFPAY ==
--- NOTE | 2024-06-24 14:01 | DI.RAD.S_ITS ---
PROCEDURE: XR CHEST 2V INDICATIONS: COUGH TECHNIQUE: 2 views of the chest were acquired. COMPARISON: [facility], CR, XR CHEST 1V, 06/12/2023, 8:53. FINDINGS: Surgical changes and devices: Cholecystectomy clips.. Lungs and pleura: Lungs are clear. No pleural effusions or pneumothorax. Mediastinum: Mediastinal contours are normal. Heart size is normal. Bones and chest wall: No suspicious bony abnormalities. Soft tissues appear unremarkable. Thoracolumbar scoliosis. IMPRESSION: No acute cardiopulmonary abnormality is seen. Dictated by: Alana Vieyra M.D. on 06/25/2024 at 12:18 Approved by: Alana Vieyra M.D. on 06/25/2024 at 12:18
== END ==
PROVIDERS: PCP Nurse Practitioner Family; Referring Provider Nurse Practitioner Family; Visit Provider Nurse Practitioner Family
DX: R05.9 Cough, unspecified (principal)
CPT/HCPCS: 71046

== ENCOUNTER → 2024-07-09 14:39 | Outpatient (CLI) | payer MEDICARE, SELFPAY ==
[2024-07-09 15:54] LABS: Add Manual Diff / Slide Review NO; Basophils Absolute Auto 100 /uL (0-100); Basophils Percent Auto 1.1 % (0-2); Eosinophils Absolute Auto 200 /uL (0-450); Eosinophils Percent Auto 4.8 % (2-4); Hematocrit 43.7 % (36-46); Hemoglobin 14.8 g/dL (12.0-16.0); Lymphocytes Absolute Auto 1100 /uL (1100-4500); Mean Corpuscular HGB Conc 33.9 % (30-36); Mean Corpuscular Hemoglobin 30.7 PG (26-34); Mean Corpuscular Volume 90.5 fL (80-100); Monocytes Absolute Auto 400 /uL (0-900); Monocytes Percent Auto 8.6 % (3-14); Neutrophils Absolute Auto 3300 /uL (1500-7000); Neutrophils Percent Auto 64.5 % (50-75); Platelet Count 194 X10^3/uL (150-400); Red Blood Cell Count 4.83 X10^6/uL (4.0-5.2); Red Cell Distribution Width 13.7 % (11.6-14.8); White Blood Cell Count 5.1 X10^3/uL (4.5-11.0)
[2024-07-09 16:11] LABS: Appearance Urine UA CLEAR; Bilirubin Urine UA NEGATIVE (NEGATIVE); Color Urine UA YELLOW; Glucose Urine UA NEGATIVE (Negative); Ketones Urine UA NEGATIVE (NEGATIVE); Leukocyte Esterase Urine UA NEGATIVE (NEGATIVE); Nitrite Urine UA NEGATIVE (Negative); Occult Blood Urine UA NEGATIVE (Negative); Protein Urine UA NEGATIVE (Negative); Urobilinogen Urine UA 0.2 E.U./dL (0.2); pH Urine UA 5.5 (4.5-8.0)
[2024-07-09 16:31] LABS: Alanine Aminotransferase 33 IU/L (<35); Albumin 4.4 g/dL (3.5-5.0); Albumin Globulin Ratio 1.3 (1.0-2.8); Alkaline Phosphatase 86 U/L (38-126); Aspartate Aminotransferase 44 IU/L (14-36); BUN Creatinine Ratio 23.2 (6-22); Bilirubin Total 0.8 mg/dL (0.2-1.3); Blood Urea Nitrogen 19 mg/dL (7-17); Calcium 10.1 mg/dL (8.4-10.2); Carbon Dioxide 26 mmol/L (22-32); Chloride 106 mmol/L (98-107); Cholesterol 191 mg/dL (140-199); Estimated Glomerular Filt Rate > 60 mL/min (>60); Globulin 3.4 g/dL (1.7-4.1); Glucose 125 mg/dL (70-99); HDL Cholesterol 92 mg/dL (40-60); HEMOLYSIS < 15 (0-50); LDL Cholesterol Calculated 72 mg/dL (<100); Potassium 4.3 mmol/L (3.4-5.1); Sodium 140 mmol/L (137-145); Total Protein 7.8 g/dL (6.3-8.2); Triglycerides 136 mg/dL (35-150)
[2024-07-09 16:37] LABS: Hemoglobin A1C% w Est Avg Glu 5.5 % (4.0-6.0)
[2024-07-09 16:48] LABS: Vitamin D 25 Hydroxy (D3) 35.6 ng/mL (30.0-100.0)
[2024-07-09 17:02] LABS: TSH w/ Reflex to FT4 0.89 uIU/mL (0.47-4.68)
[2024-07-09 17:38] LABS: Folate 9.4 ng/mL (2.76-20.0); Vitamin B12 493 pg/mL (239-931)
== END ==
PROVIDERS: PCP Nurse Practitioner Family; Referring Provider Nurse Practitioner Family; Visit Provider Nurse Practitioner Family
DX: R41.3 Other amnesia (principal); R41.89 Other symptoms and signs involving cognitive functions and awareness; Z71.1 Person with feared health complaint in whom no diagnosis is made
CPT/HCPCS: 36415; 80053; 80061; 81003; 82306; 82607; 82746; 83036; 84443; 85025

== ENCOUNTER → 2024-08-08 13:20 | Outpatient (CLI) | payer MEDICARE, SELFPAY | PROVIDERS: PCP Nurse Practitioner Family; Visit Provider Chiropractor | DX: S81.802A Unspecified open wound, left lower leg, initial encounter (principal); X58.XXXA Exposure to other specified factors, initial encounter | CPT/HCPCS: 87070; 87077; 87147; 87186; 87205 ==

== ENCOUNTER → 2024-08-25 11:10 | Outpatient (CLI) | payer MEDICARE, SELFPAY ==
--- NOTE | 2024-08-25 11:12 | DI.MRI.S_ITS ---
PROCEDURE: MR HEAD/BRAIN WO CON INDICATIONS: changes in behavior/speech/memory, inability to control mood TECHNIQUE: Noncontrast axial T1 spin echo, axial T2 fast spin echo, sagittal and axial FLAIR, coronal T2 fast spin echo, axial gradient echo, axial diffusion and ADC through the brain. COMPARISON: [facility], CT, CT HEAD/BRAIN WO CON, 05/31/2022, 16:26. [facility], MR, MR HEAD/BRAIN WO CON, 09/10/2022, 15:49. FINDINGS: CSF Spaces: Basal cisterns are patent. No extra-axial fluid collections. Ventricles are normal in size and shape. Brain: No intracranial masses or hemorrhage. Estrella/white matter interface is normal. Brainstem appears normal. Diffusion-weighted sequence is unremarkable without evidence of acute infarct. Normal intravascular flow voids are present. Mild atrophy and chronic ischemic change Skull and face: Calvarium has normal marrow signal. Bilateral intraocular lens replacements noted. Diffuse calvarial thickening is homogeneous and stable from prior exam Sinuses: Sinuses and mastoids are clear. IMPRESSION: Age-appropriate atrophy and chronic ischemic change without acute infarct, hemorrhage or mass lesion. No change from the prior exams. Approved by: Olaf Barbosa M.D. on 08/26/2024 at 13:15
== END ==
LOC: MRI 11:11
PROVIDERS: PCP Nurse Practitioner Family; Referring Provider Nurse Practitioner Family; Visit Provider Nurse Practitioner Family
DX: R41.3 Other amnesia (principal); R47.89 Other speech disturbances; R46.89 Other symptoms and signs involving appearance and behavior
CPT/HCPCS: 70551

== ENCOUNTER → 2024-09-17 10:58 | Outpatient (CLI) | payer MEDICARE, SELFPAY | PROVIDERS: PCP Nurse Practitioner Family; Referring Provider Nurse Practitioner Family; Visit Provider Physician Assistant | DX: R21 Rash and other nonspecific skin eruption (principal) | CPT/HCPCS: 99203; 99214 ==